=== PATIENT | male | born 1970 | race Caucasian/White ===

== ENCOUNTER 2016-10-31 16:45 | Emergency (ER) | payer OTHER ==
[2016-10-31 17:13] VITALS: BP 142/96; PULSE 116; RESP 18; TEMP 98.2
--- NOTE | 2016-10-31 17:13 | ED ---
Animal Bite HPI - General Chief Complaint: Animal Bite Stated Complaint: Dog Bite-[facility] Time Seen by Provider: 10/31/16 17:01 Source: patient, RN notes reviewed, old records reviewed Mode of arrival: ambulatory Limitations: no limitations - History of Present Illness Initial Comments: Is a 38-year-old male presenting to emergency Department with chief complaint of a dog bite while at work. 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 She he reports that her small dog came and bit him in the leg. He denies any significant bleeding. He reports he got bit in the right calf. Patient states the bleeding is stopped and he is in no pain. Patient denies any other injuries. Patient reports that this is the second time the dog has bit him the first time he did have close on so there was no puncture wound. Patient reports that he is up-to-date on his tetanus shot. Patient states that the dog is also up-to-date on his vaccinations. - Related Data Previous Rx's Medication Instructions Recorded Amoxic-Pot Clav 875-125Mg 1 tab PO Q12HR #14 tablet 10/31/16 [Augmentin 875-125] Allergies Allergy/AdvReac Type Severity Reaction Status Date / Time No Known Allergies Allergy Verified 10/31/16 17:07 Review of Systems ROS Statement: Those systems with pertinent positive or pertinent negative responses have been documented in the HPI. ROS Other: All systems not noted in ROS Statement are negative. Past Medical History History of Any Multi-Drug Resistant Organisms: None Reported Past Psychological History: No Psychological Hx Reported Smoking Status: Former smoker Past Alcohol Use History: Occasional Past Drug Use History: None Reported General Exam - General Exam Comments Initial Comments: This is a pleasant 46-year-old male. No acute distress. Limitations: no limitations General appearance: alert, in no apparent distress Head exam: Present: atraumatic, normocephalic, normal inspection Eye exam: Present: normal appearance, PERRL, EOMI. Absent: scleral icterus, conjunctival injection, periorbital swelling ENT exam: Present: normal exam, mucous membranes moist Neck exam: Present: normal inspection. Absent: tenderness, meningismus, lymphadenopathy Respiratory exam: Present: normal lung sounds bilaterally. Absent: respiratory distress, wheezes, rales, rhonchi, stridor Cardiovascular Exam: Present: regular rate, normal rhythm, normal heart sounds. Absent: systolic murmur, diastolic murmur, rubs, gallop, clicks GI/Abdominal exam: Present: soft, normal bowel sounds. Absent: distended, tenderness, guarding, rebound, rigid Extremities exam: Present: normal inspection, full ROM, normal capillary refill , other (One small laceration over the right anterior calf. Bleeding is well- controlled.). Absent: tenderness, pedal edema, joint swelling, calf tenderness Back exam: Present: normal inspection Neurological exam: Present: alert, oriented X3, CN II-XII intact Psychiatric exam: Present: normal affect, normal mood Skin exam: Present: warm, dry, intact, normal color. Absent: rash Course Vital Signs 10/31/16 17:05 Temperature 98.2 F Pulse Rate 116 H Respiratory 18 Rate Blood Pressure 142/96 O2 Sat by Pulse 97 Oximetry Medical Decision Making - Medical Decision Making This is a 38-year-old male present emergency department with chief complaint of a dog bite on his right calf. Patient is up-to-date on his tetanus shot. Diabetes he believes the up-to-date on vaccinations. Patient will be started on Augmentin. Patient bleeding is well controlled. No significant laceration at this time. Wound was cleaned with Betadine and a nonstick dressing was adhered. Patient is advised to monitor for any signs of infection including redness swelling and drainage. Patient states she plan will comply. Return parameters were discussed. Disposition Clinical Impression: Dog bite Disposition: HOME SELF-CARE Condition: Good Instructions: Animal Bite (ED) Additional Instructions: Patient advised to keep the area clean. Monitor for any signs of infection including redness swelling or drainage. Complete entire antibiotic prescription. Keep the wound covered for the next 24 hours. Prescriptions: Amoxic-Pot Clav 875-125Mg [Augmentin 875-125] 1 tab PO Q12HR #14 tablet Referrals: None,Stated [Primary Care Provider] - 1-2 days Aline Longoria MD [STAFF PHYSICIAN] - 1-2 days Time of Disposition: 17:11
== END 2016-10-31 17:30 | disposition home or self-care (01) ==
LOC: EC 16:45
DX: S81.811A Laceration without foreign body, right lower leg, initial encounter (principal); Z87.891 Personal history of nicotine dependence; W54.0XXA Bitten by dog, initial encounter; Y93.89 Activity, other specified; Y99.0 Civilian activity done for income or pay; Y92.69 Other specified industrial and construction area as the place of occurrence of the external cause
CPT/HCPCS: 99283

== ENCOUNTER → 2017-08-01 | Outpatient (CLI) | payer OTHER ==
[2017-08-01 14:28] LABS: Basophils # (A) 0.1 k/uL (0-0.2); Basophils % (A) 1 %; Eosinophils # (A) 0.2 k/uL (0-0.7); Eosinophils % (A) 1 %; HCT 46.5 % (39.0-53.0); HGB 15.5 gm/dL (13.0-17.5); Lymphocytes # (A) 1.9 k/uL (1.0-4.8); Lymphocytes % (A) 17 %; MCH 28.9 pg (25.0-35.0); MCHC 33.2 g/dL (31.0-37.0); MCV 86.9 fL (80.0-100.0); Mean Platelet Volume 7.7; Monocytes # (A) 0.7 k/uL (0-1.0); Monocytes % (A) 6 %; Neutrophils # (A) 8.2 k/uL (1.3-7.7); Neutrophils % (A) 73 %; Platelet Count 223 k/uL (150-450); RBC 5.36 m/uL (4.30-5.90); RDW 12.7 % (11.5-15.5); WBC 11.2 k/uL (3.8-10.6)
[2017-08-01 14:39] LABS: Amylase 39 U/L (30-110); Lipase 161 U/L (23-300)
== END | disposition home or self-care (01) ==
LOC: LABWHC1 13:58
PROVIDERS: ATTEND Internal Medicine
DX: R10.11 Right upper quadrant pain (principal)
CPT/HCPCS: 36415; 82150; 83690; 85025

== ENCOUNTER 2017-08-02 11:32 | Inpatient (IN) | payer OTHER ==
[2017-08-02] MEDS ORDERED: SODIUM CHLORIDE 0.9% 1,000 ML IV STA (13:22)
[2017-08-02 13:39] LABS: Basophils # (A) 0.1 k/uL (0-0.2); Basophils % (A) 1 %; Eosinophils # (A) 0.1 k/uL (0-0.7); Eosinophils % (A) 1 %; HCT 45.8 % (39.0-53.0); HGB 15.2 gm/dL (13.0-17.5); Lymphocytes # (A) 1.7 k/uL (1.0-4.8); Lymphocytes % (A) 20 %; MCHC 33.3 g/dL (31.0-37.0); MCV 87.2 fL (80.0-100.0); Mean Platelet Volume 7.6; Monocytes # (A) 0.6 k/uL (0-1.0); Monocytes % (A) 6 %; Neutrophils # (A) 6.2 k/uL (1.3-7.7); Neutrophils % (A) 70 %; Platelet Count 214 k/uL (150-450); RBC 5.25 m/uL (4.30-5.90); RDW 12.6 % (11.5-15.5); WBC 8.8 k/uL (3.8-10.6)
[2017-08-02 13:48] LABS: Appearance,Urine Clear (Clear); Bilirubin,Urine Negative (Negative); Blood,Urine Negative (Negative); Color,Urine Yellow; Glucose,Urine (UA) 4+ (Negative); Ketones,Urine Negative (Negative); Leukocyte Esterase,Urine Negative (Negative); Nitrite,Urine Negative (Negative); PH, Urine 5.5 (5.0-8.0); Protein,Urine Negative (Negative); Specific Gravity,Urine 1.024 (1.001-1.035); Urobilinogen,Urine <2.0 mg/dL (<2.0)
--- NOTE | 2017-08-02 13:57 | ED ---
General Adult HPI - General Chief complaint: Abdominal Pain Stated complaint: Dx bad gallbladder, sent by doctor Time Seen by Provider: 08/02/17 13:04 Source: patient, RN notes reviewed Mode of arrival: ambulatory Limitations: no limitations - History of Present Illness Initial comments: Patient is a 47-year-old male who presents emergency room today with a chief complaint of having abnormal ultrasound earlier this morning. He does admit that he was called and told come here to the emergency room. He states he's been experiencing some pain in the right side of the abdomen over the last week. States the pain seems to come and go. Patient does admit that he follow- up the family doctor ordered an ultrasound that he had obtained this morning. Patient states he is relatively comfortable at this time does not morning for pain. Does admit that he's been feeling nauseated at times. Patient denies any recent fever, chills, shortness of breath, chest pain, back pain, numbness or tingling, dysuria or hematuria, constipation or diarrhea, headaches or visual changes, or any other complaints. - Related Data Home Medications Medication Instructions Recorded Confirmed Amoxicillin/Potassium Clav 1 tab PO Q12HR 08/02/17 08/02/17 [Augmentin 875-125 Tablet] Unknown Diabetic Med 1 tab PO DAILY 08/02/17 08/02/17 Allergies Allergy/AdvReac Type Severity Reaction Status Date / Time No Known Allergies Allergy Verified 08/02/17 13:12 Review of Systems ROS Statement: Those systems with pertinent positive or pertinent negative responses have been documented in the HPI. ROS Other: All systems not noted in ROS Statement are negative. Past Medical History Past Medical History: Diabetes Mellitus, Hyperlipidemia History of Any Multi-Drug Resistant Organisms: None Reported Past Surgical History: Bowel Resection Past Psychological History: No Psychological Hx Reported Smoking Status: Former smoker Past Alcohol Use History: Occasional Past Drug Use History: None Reported General Exam - General Exam Comments Initial Comments: General: The patient is awake and alert, in no distress, and does not appear acutely ill. Eye: Pupils are equal, round and reactive to light, extra-ocular movements are intact. No nystagmus. There is normal conjunctiva bilaterally. No signs of icterus. Ears, nose, mouth and throat: There are moist mucous membranes and no oral lesions. Neck: The neck is supple, there is no tenderness or JVD. Cardiovascular: There is a regular rate and rhythm. No murmur, rub or gallop is appreciated. Respiratory: Lungs are clear to auscultation, respirations are non-labored, breath sounds are equal. No wheezes, stridor, rales, or rhonchi. Gastrointestinal: Normal appearance abdomen. Normal bowel sounds. Abdomen soft on palpation patient does have tenderness right upper quadrant. No rebound tenderness. No guarding. No CVA tenderness. Musculoskeletal: Normal ROM, no tenderness. Strength 5/5. Sensation intact. Pulses equal bilaterally 2+. Neurological: A&O x 3. CN II-XII intact, There are no obvious motor or sensory deficits. Coordination appears grossly intact. Speech is normal. Skin: Skin is warm and dry and no rashes or lesions are noted. Psychiatric: Cooperative, appropriate mood & affect, normal judgment. Limitations: no limitations Course Vital Signs 08/02/17 11:37 Temperature 97.0 F L Pulse Rate 98 Respiratory 18 Rate Blood Pressure 179/96 O2 Sat by Pulse 99 Oximetry Medical Decision Making - Medical Decision Making Patient's labs been reviewed. Patient's ultrasound from earlier today was reviewed showing evidence for a acute cholecystitis. Results were discussed with the patient. Case discussed with attending physician Dr. Barry who has spoken with surgeon bail bonding agent Dr. Winchester with the patient. - Lab Data Result diagrams: 08/02/17 13:03 08/02/17 13:03 Lab Results 08/02/17 08/02/17 08/02/17 Range/Units 13:03 13:03 13:36 WBC 8.8 (3.8-10.6) k/uL RBC 5.25 (4.30-5.90) m/uL Hgb 15.2 (13.0-17.5) gm/dL Hct 45.8 (39.0-53.0) % MCV 87.2 (80.0-100.0) fL MCH 29.0 (25.0-35.0) pg MCHC 33.3 (31.0-37.0) g/dL RDW 12.6 (11.5-15.5) % Plt Count 214 (150-450) k/uL Neutrophils % 70 % Lymphocytes % 20 % Monocytes % 6 % Eosinophils % 1 % Basophils % 1 % Neutrophils # 6.2 (1.3-7.7) k/uL Lymphocytes # 1.7 (1.0-4.8) k/uL Monocytes # 0.6 (0-1.0) k/uL Eosinophils # 0.1 (0-0.7) k/uL Basophils # 0.1 (0-0.2) k/uL Sodium 139 (137-145) mmol/L Potassium 4.3 (3.5-5.1) mmol/L Chloride 100 (98-107) mmol/L Carbon Dioxide 26 (22-30) mmol/L Anion Gap 13 mmol/L BUN 16 (9-20) mg/dL Creatinine 0.75 (0.66-1.25) mg/dL Est GFR (MDRD) Af Amer >60 (>60 ml/min/1.73 sqM) Est GFR (MDRD) Non-Af >60 (>60 ml/min/1.73 sqM) Glucose 296 H (74-99) mg/dL Plasma Lactic Acid Tony 1.3 (0.7-2.0) mmol/L Calcium 10.0 (8.4-10.2) mg/dL Total Bilirubin 0.5 (0.2-1.3) mg/dL AST 23 (17-59) U/L ALT 30 (21-72) U/L Alkaline Phosphatase 109 (38-126) U/L Total Protein 7.0 (6.3-8.2) g/dL Albumin 3.8 (3.5-5.0) g/dL Amylase 44 (30-110) U/L Lipase 264 (23-300) U/L Urine Color Urine Appearance (Clear) Urine pH (5.0-8.0) Ur Specific [place] (1.001-1.035) Urine Protein (Negative) Urine Glucose (UA) (Negative) Urine Ketones (Negative) Urine Blood (Negative) Urine Nitrite (Negative) Urine Bilirubin (Negative) Urine Urobilinogen (<2.0) mg/dL Ur Leukocyte Esterase (Negative) 08/02/17 Range/Units 13:40 WBC (3.8-10.6) k/uL RBC (4.30-5.90) m/uL Hgb (13.0-17.5) gm/dL Hct (39.0-53.0) % MCV (80.0-100.0) fL MCH (25.0-35.0) pg MCHC (31.0-37.0) g/dL RDW (11.5-15.5) % Plt Count (150-450) k/uL Neutrophils % % Lymphocytes % % Monocytes % % Eosinophils % % Basophils % % Neutrophils # (1.3-7.7) k/uL Lymphocytes # (1.0-4.8) k/uL Monocytes # (0-1.0) k/uL Eosinophils # (0-0.7) k/uL Basophils # (0-0.2) k/uL Sodium (137-145) mmol/L Potassium (3.5-5.1) mmol/L Chloride (98-107) mmol/L Carbon Dioxide (22-30) mmol/L Anion Gap mmol/L BUN (9-20) mg/dL Creatinine (0.66-1.25) mg/dL Est GFR (MDRD) Af Amer (>60 ml/min/1.73 sqM) Est GFR (MDRD) Non-Af (>60 ml/min/1.73 sqM) Glucose (74-99) mg/dL Plasma Lactic Acid Tony (0.7-2.0) mmol/L Calcium (8.4-10.2) mg/dL Total Bilirubin (0.2-1.3) mg/dL AST (17-59) U/L ALT (21-72) U/L Alkaline Phosphatase (38-126) U/L Total Protein (6.3-8.2) g/dL Albumin (3.5-5.0) g/dL Amylase (30-110) U/L Lipase (23-300) U/L Urine Color Yellow Urine Appearance Clear (Clear) Urine pH 5.5 (5.0-8.0) Ur Specific [place] 1.024 (1.001-1.035) Urine Protein Negative (Negative) Urine Glucose (UA) 4+ H (Negative) Urine Ketones Negative (Negative) Urine Blood Negative (Negative) Urine Nitrite Negative (Negative) Urine Bilirubin Negative (Negative) Urine Urobilinogen <2.0 (<2.0) mg/dL Ur Leukocyte Esterase Negative (Negative) Disposition Clinical Impression: Acute cholecystitis Disposition: ADMITTED IP TO THIS [facility] Condition: Good Referrals: Lane Flores MD [Primary Care Provider] - 1-2 days Time of Disposition: 14:23
[2017-08-02 14:01] LABS: ALT 30 U/L (21-72); AST 23 U/L (17-59); Albumin 3.8 g/dL (3.5-5.0); Alkaline Phosphatase 109 U/L (38-126); Amylase 44 U/L (30-110); Anion Gap 13 mmol/L; Blood Urea Nitrogen 16 mg/dL (9-20); Carbon Dioxide 26 mmol/L (22-30); Chloride 100 mmol/L (98-107); Glucose 296 mg/dL (74-99); Lipase 264 U/L (23-300); Potassium 4.3 mmol/L (3.5-5.1); Sodium 139 mmol/L (137-145); Total Bilirubin 0.5 mg/dL (0.2-1.3)
[2017-08-02] MEDS ORDERED: SODIUM CHLORIDE 0.9% 1,000 ML IV ONE (14:29)
[2017-08-02] MEDS ORDERED: HYDROmorphone 0.5 MG/0.5 ML SYRINGE IVP PRN (14:29)
[2017-08-02] MEDS ORDERED: ONDANSETRON 4 MG/2 ML VIAL IVP PRN (14:29)
[2017-08-02] MEDS ORDERED: NALOXONE 0.4 MG/ML 1 ML VIAL IV PRN (14:29)
[2017-08-02] MEDS ORDERED: LORazepam 2 MG/ML INJ IV PRN (14:29)
[2017-08-02] MEDS ORDERED: PIPERACILLIN-TAZOBACTAM 3.375 GM in DEXTROSE/WATER 1 50ML.BAG IVPB STA (14:32)
[2017-08-02 17:23] VITALS: BMI 31.9
[2017-08-02 18:00] LABS: Glucose,Whole Blood 164 mg/dL (75-99)
[2017-08-02] MEDS: INSULIN ASPART 100 UNIT/ML 1 ML 10 ML VIAL SQ SCH ×2 (18:10→21:59)
--- NOTE | 2017-08-02 18:31 | P.PN ---
Progress Note - Text Progress Note Date: 08/02/17 Patient seen and evaluated. Ultrasound revealed consistent with acute cholecystitis. Patient reports being on antibiotics for at least 1 week for suspected urinary tract infection or kidney infection. He has recently been diagnosed with diabetes this week as well. Surgical intervention described. Continue IV antibiotics in the interim.
[2017-08-02 20:52] LABS: Glucose,Whole Blood 119 mg/dL (75-99)
[2017-08-02 23:35] LABS: Hemoglobin A1C 9.5 % (4.0-6.0)
[2017-08-03] MEDS: AMPICILLIN-SULBACTAM 3 GM in SODIUM CHLORIDE 0.9% 100 ML IVPB SCH ×5 (00:08→23:49)
[2017-08-03 07:13] LABS: Basophils # (A) 0.1 k/uL (0-0.2); Basophils % (A) 1 %; Eosinophils # (A) 0.2 k/uL (0-0.7); Eosinophils % (A) 2 %; HCT 40.9 % (39.0-53.0); HGB 13.3 gm/dL (13.0-17.5); Lymphocytes # (A) 1.5 k/uL (1.0-4.8); Lymphocytes % (A) 20 %; MCH 28.6 pg (25.0-35.0); MCHC 32.5 g/dL (31.0-37.0); MCV 87.8 fL (80.0-100.0); Mean Platelet Volume 7.2; Monocytes # (A) 0.5 k/uL (0-1.0); Monocytes % (A) 6 %; Neutrophils # (A) 5.2 k/uL (1.3-7.7); Neutrophils % (A) 68 %; Platelet Count 176 k/uL (150-450); RBC 4.65 m/uL (4.30-5.90); RDW 12.6 % (11.5-15.5); WBC 7.6 k/uL (3.8-10.6)
[2017-08-03 07:29] LABS: ALT 29 U/L (21-72); AST 22 U/L (17-59); Albumin 3.1 g/dL (3.5-5.0); Alkaline Phosphatase 87 U/L (38-126); Anion Gap 10 mmol/L; Blood Urea Nitrogen 14 mg/dL (9-20); Calcium 8.9 mg/dL (8.4-10.2); Carbon Dioxide 25 mmol/L (22-30); Chloride 105 mmol/L (98-107); Glucose 148 mg/dL (74-99); Potassium 4.6 mmol/L (3.5-5.1); Sodium 140 mmol/L (137-145); Total Bilirubin 0.8 mg/dL (0.2-1.3)
[2017-08-03 07:47] LABS: Glucose,Whole Blood 144 mg/dL (75-99)
[2017-08-03] MEDS: INSULIN ASPART 100 UNIT/ML 1 ML 10 ML VIAL SQ SCH ×5 (09:12→22:37)
[2017-08-03 11:17] LABS: Glucose,Whole Blood 141 mg/dL (75-99)
--- NOTE | 2017-08-03 12:54 | P.PN ---
Subjective Progress Note Date: 08/03/17 The patient is a 47-year-old gentleman who comes in his newly diagnosed diabetic including acute cholecystitis. Since admission, his right upper quadrant abdominal pain has improved. He is responding well to antibiotics. Otherwise no new complaints. Objective - Vital Signs Vital signs: Vital Signs Temp 97.9 F 08/03/17 09:07 Pulse 82 08/03/17 09:07 Resp 20 08/03/17 09:07 BP 148/89 08/03/17 09:07 Pulse Ox 96 08/03/17 09:07 Intake & Output 08/02/17 08/03/17 08/03/17 18:59 06:59 18:59 Intake Total 120 1010 Balance 120 1010 Weight 100.97 kg Intake: Intake, IV Titration 50 Amount Piperacillin-Tazobactam 3 50 .375 gm In Dextrose/Water 1 50ml.bag @ 12.5 mls/hr IVPB ONCE STA Rx#: [id number] Oral 120 960 Other: Voiding Method Toilet # Voids 1 1 - Exam GENERAL: Well developed and in no acute distress. Pleasant. HEENT: No sclera icterus. Extraocular movements grossly intact. Moist buccal mucosa. Head is atraumatic, normocephalic. Hears conversational speech. No nasal drainage. NECK: Supple without lymphadenopathy. No JV distention. CHEST: Non-labored respirations and equal bilateral excursions. CARDIOVASCULAR: Regular rate and rhythm. Palpable 2+ radial pulses. ABDOMEN: Soft, minimal tenderness along the right upper quadrant. No peritonitis. MUSCULOSKELETAL: No clubbing, cyanosis or edema. NEUROLOGIC: No focal or lateralizing signs. PSYCH: Appropriate affect. Alert and oriented to person, place and time. SKIN: Good skin turgor. Well perfused. - Labs CBC & Chem 7: 08/03/17 06:38 08/03/17 06:38 Labs: Abnormal Lab Results - Last 24 Hours (Table) 08/02/17 08/02/17 08/02/17 Range/Units 13:03 13:03 13:40 Glucose 296 H (74-99) mg/dL POC Glucose (mg/dL) (75-99) mg/dL Hemoglobin A1c 9.5 H (4.0-6.0) % Total Protein (6.3-8.2) g/dL Albumin (3.5-5.0) g/dL Urine Glucose (UA) 4+ H (Negative) 08/02/17 08/02/17 08/03/17 Range/Units 17:07 20:50 06:38 Glucose 148 H (74-99) mg/dL POC Glucose (mg/dL) 164 H 119 H (75-99) mg/dL Hemoglobin A1c (4.0-6.0) % Total Protein 6.0 L (6.3-8.2) g/dL Albumin 3.1 L (3.5-5.0) g/dL Urine Glucose (UA) (Negative) 08/03/17 08/03/17 Range/Units 06:50 11:10 Glucose (74-99) mg/dL POC Glucose (mg/dL) 144 H 141 H (75-99) mg/dL Hemoglobin A1c (4.0-6.0) % Total Protein (6.3-8.2) g/dL Albumin (3.5-5.0) g/dL Urine Glucose (UA) (Negative) Assessment and Plan (1) Diabetes type 2, controlled Current Visit: Yes Status: Acute Code(s): E11.9 - TYPE 2 DIABETES MELLITUS WITHOUT COMPLICATIONS SNOMED Code(s): 25983011 (2) Acute cholecystitis Current Visit: Yes Status: Acute Code(s): K81.0 - ACUTE CHOLECYSTITIS SNOMED Code(s): 90318394 Plan: 1. Given his presentation of acute cholecystitis including thickened gallbladder wall, technique of surgery including robotic approach was reviewed to increase safety of his operation which he demonstrated understanding. 2. In the interim, we'll continue with antibiotics which should help to decrease moderate inflammation along the gallbladder. 3. Low-fat including carbohydrate consistent diet in the interim. 4. DVT prophylaxis.
[2017-08-03] MEDS: HEPARIN SODIUM,PORCINE 5,000 UNIT/ML 1 ML VIAL SQ SCH ×2 (16:06→23:49)
[2017-08-03 16:57] LABS: Glucose,Whole Blood 169 mg/dL (75-99)
[2017-08-03 21:37] LABS: Glucose,Whole Blood 136 mg/dL (75-99)
[2017-08-04] MEDS: AMPICILLIN-SULBACTAM 3 GM in SODIUM CHLORIDE 0.9% 100 ML IVPB SCH ×3 (05:32→12:35)
--- NOTE | 2017-08-04 07:57 | P.GSHP ---
History of Present Illness H&P Date: 08/02/17 CHIEF COMPLAINT: Cholecystitis HISTORY OF PRESENT ILLNESS: The patient is a 47-year-old male who presents with history of epigastric including right upper quadrant abdominal pain. Ultrasound was consistent with acute cholecystitis. Patient reports being on antibiotics for at least 1 week for suspected urinary tract infection or kidney infection. He has recently been diagnosed with diabetes this week as well. She is unaware of any family history of gallbladder disease. PAST MEDICAL HISTORY: Please see list PAST SURGICAL HISTORY: Please see list MEDICATIONS: Please see list ALLERGIES: Denies. SOCIAL HISTORY: No illicit drug use or recent tobacco use FAMILY HISTORY: Unaware of gallbladder disease REVIEW OF ORGAN SYSTEMS: CONSTITUTIONAL: No reports of fevers or chills. HEENT: Denies any troubles with the vision or hearing. Wears glasses. ENDOCRINE: No reports of hypothyroidism. New diagnosis of diabetes within 1 week. RESPIRATORY: No recent pneumonias. No asthma. CARDIOVASCULAR: Denies chest pain or palpitations GI: No blood in stools or constipation. MUSCULOSKELETAL: Has occasional joint pain including back pain. NEURO: No seizure disorders or headaches. No recent stroke. PSYCH: No depression or suicidal ideation. HEMATOLOGIC: No personal or family history of DVTs or pulmonary emboli. PHYSICAL EXAM: VITAL SIGNS: Afebrile vital signs stable GENERAL: Well-developed pleasant male in no acute distress. HEENT: No scleral icterus. Extraocular movements grossly intact. Moist buccal mucosa. NECK: Supple without lymphadenopathy. CHEST: Unlabored respirations. Equal bilateral excursions. CARDIOVASCULAR: Regular rate regular rhythm rhythm. Distal 2+ pulses. ABDOMEN: Soft, nondistended. Mild tenderness along the right upper quadrant. No peritonitis. MUSCULOSKELETAL: No clubbing, cyanosis, or edema. NEURO :Moves all extremities 5/5. Cranial nerves II-12 grossly intact. PSYCH: Alert and oriented to person, place and time. SKIN: Well perfused. Good skin turgor. ASSESSMENT: 1. Right upper quadrant abdominal pain 2. Acute cholecystitis PLAN: 1. Will need a robotic laparoscopic cholecystectomy possible open. Benefits and risks were described. 2. Heparin for DVT prophylaxis 5000 units. 3. Antibiotic prophylaxis. Past Medical History Past Medical History: Diabetes Mellitus, Hyperlipidemia History of Any Multi-Drug Resistant Organisms: None Reported Past Surgical History: Bowel Resection Smoking Status: Former smoker Medications and Allergies Home Medications Medication Instructions Recorded Confirmed Type Amoxicillin/Potassium Clav 1 tab PO Q12HR 08/02/17 08/02/17 History [Augmentin 875-125 Tablet] Unknown Diabetic Med 1 tab PO DAILY 08/02/17 08/02/17 History Allergies Allergy/AdvReac Type Severity Reaction Status Date / Time No Known Allergies Allergy Verified 08/02/17 17:30 Surgical - Exam Vital Signs Temp Pulse Resp BP Pulse Ox 97.0 F L 98 18 179/96 99 08/02/17 11:37 08/02/17 11:37 08/02/17 11:37 08/02/17 11:37 08/02/17 11:37 Results - Labs 08/03/17 06:38 08/03/17 06:38 Abnormal Lab Results - Last 24 Hours (Table) 08/02/17 08/02/17 08/02/17 Range/Units 13:03 13:40 17:07 Glucose 296 H (74-99) mg/dL POC Glucose (mg/dL) 164 H (75-99) mg/dL Urine Glucose (UA) 4+ H (Negative) Diabetes panel 08/02/17 Range/Units 13:03 Sodium 139 (137-145) mmol/L Potassium 4.3 (3.5-5.1) mmol/L Chloride 100 (98-107) mmol/L Carbon Dioxide 26 (22-30) mmol/L BUN 16 (9-20) mg/dL Creatinine 0.75 (0.66-1.25) mg/dL Glucose 296 H (74-99) mg/dL Calcium 10.0 (8.4-10.2) mg/dL AST 23 (17-59) U/L ALT 30 (21-72) U/L Alkaline Phosphatase 109 (38-126) U/L Total Protein 7.0 (6.3-8.2) g/dL Albumin 3.8 (3.5-5.0) g/dL Calcium panel 08/02/17 Range/Units 13:03 Calcium 10.0 (8.4-10.2) mg/dL Albumin 3.8 (3.5-5.0) g/dL Pituitary panel 08/02/17 Range/Units 13:03 Sodium 139 (137-145) mmol/L Potassium 4.3 (3.5-5.1) mmol/L Chloride 100 (98-107) mmol/L Carbon Dioxide 26 (22-30) mmol/L BUN 16 (9-20) mg/dL Creatinine 0.75 (0.66-1.25) mg/dL Glucose 296 H (74-99) mg/dL Calcium 10.0 (8.4-10.2) mg/dL Adrenal panel 08/02/17 Range/Units 13:03 Sodium 139 (137-145) mmol/L Potassium 4.3 (3.5-5.1) mmol/L Chloride 100 (98-107) mmol/L Carbon Dioxide 26 (22-30) mmol/L BUN 16 (9-20) mg/dL Creatinine 0.75 (0.66-1.25) mg/dL Glucose 296 H (74-99) mg/dL Calcium 10.0 (8.4-10.2) mg/dL Total Bilirubin 0.5 (0.2-1.3) mg/dL AST 23 (17-59) U/L ALT 30 (21-72) U/L Alkaline Phosphatase 109 (38-126) U/L Total Protein 7.0 (6.3-8.2) g/dL Albumin 3.8 (3.5-5.0) g/dL - Imaging US - abdomen: report reviewed, image reviewed (Thickening gallbladder wall over 5 mm.) Assessment and Plan (1) Obesity (BMI 30.0-34.9) Current Visit: Yes Status: Acute Code(s): E66.9 - OBESITY, UNSPECIFIED SNOMED Code(s): 335343694 (2) Acute cholecystitis Current Visit: Yes Status: Acute Code(s): K81.0 - ACUTE CHOLECYSTITIS SNOMED Code(s): 98733682 (3) Diabetes type 2, controlled Current Visit: Yes Status: Acute Code(s): E11.9 - TYPE 2 DIABETES MELLITUS WITHOUT COMPLICATIONS SNOMED Code(s): 61906867 Plan: 1. Recommend full inpatient admission for acute cholecystitis. 2. IV antibiotics. 3. DVT prophylaxis. 4. GI prophylaxis. 5. Will need cholecystectomy.
[2017-08-04] MEDS: INSULIN ASPART 100 UNIT/ML 1 ML 10 ML VIAL SQ SCH ×4 (08:07→21:49)
[2017-08-04] MEDS: HEPARIN SODIUM,PORCINE 5,000 UNIT/ML 1 ML VIAL SQ SCH ×2 (08:18→17:02)
[2017-08-04 11:08] LABS: Glucose,Whole Blood 140 mg/dL (75-99)
[2017-08-04] MEDS ORDERED: LACTATED RINGERS 1,000 ML IV ONE ×4 (11:56→18:10)
[2017-08-04] MEDS ORDERED: INDOCYANINE GREEN 25 MG VIAL IV STA (12:04)
[2017-08-04] MEDS ORDERED: LIDOCAINE 1% 20 ML VIAL (10MG/ML) FOR IV START INTRADERMA ONE (12:11)
[2017-08-04] MEDS ORDERED: LABETALOL 5 MG/ML VIAL MDV ONE (12:35)
[2017-08-04] MEDS ORDERED: INDOCYANINE GREEN 25 MG VIAL IV ONE (12:35)
[2017-08-04] MEDS ORDERED: ROCURONIUM BROMIDE 10 MG/ML 10 ML VIAL IV ONE (12:35)
[2017-08-04] MEDS ORDERED: LIDOCAINE 1% INJ 10MG/ML (20 ML MDV) ONE (12:35)
[2017-08-04] MEDS ORDERED: PROPOFOL 10 MG/ML 20 ML VIAL IV ONE (12:35)
[2017-08-04] MEDS ORDERED: SUCCINYLCHOLINE CHLORIDE 100 MG/5 ML SYR IV ONE (12:35)
[2017-08-04] MEDS ORDERED: HYDROmorphone (PF) 1 MG/ML ONE (12:35)
[2017-08-04] MEDS ORDERED: MIDAZOLAM 2 MG/2 ML VIAL ONE (12:35)
[2017-08-04] MEDS ORDERED: fentaNYL (PF) 50 MCG/ML 2 ML AMP ONE (12:35)
[2017-08-04] MEDS ORDERED: BUPIVACAINE (PF) 0.25% 30 ML VIAL SQ ONE ×2 (12:35→13:02)
[2017-08-04 17:24] LABS: Glucose,Whole Blood 229 mg/dL (75-99)
[2017-08-04] MEDS ORDERED: INSULIN ASPART 100 UNIT/ML 1 ML 10 ML VIAL SQ ONE (17:24)
--- NOTE | 2017-08-04 17:27 | P.PCN ---
Date of Procedure: 08/04/17 Preoperative Diagnosis: Acute cholecystitis Postoperative Diagnosis: Same, gangrenous acute cholecystitis with cystic duct obstruction, severe intra- abdominal adhesions, inguinal hernias. Procedure(s) Performed: Robot-assisted laparoscopic extensive lysis of adhesions over 1-1/2 hours, robotic-assisted cholecystectomy, placement of round #19 Chet drain right upper quadrant hepatic fossa, peritoneal lavage 2 L normal saline Anesthesia: GETA, local Surgeon: Dariana Winchester Estimated Blood Loss (ml): 75 Pathology: other (Gallbladder including gallbladder fluid) Condition: stable Disposition: floor Operative Findings: 1. Multiple gallstones with severely thickened gallbladder wall over 7 mm. 2. Severe adhesions encompassing the entire gallbladder and omentum carefully dissected free 3. Severe intra-abdominal adhesions along the midline and bilateral upper abdomen secondary to previous open laparotomy and colostomy reversal. 4. Inguinal hernia. 5. Subtotal cholecystectomy a long infundibulum to avoid any injury to the cystic structure 6. FIRFELY used to identify gallbladder. 7. Abdomen irrigated with 2 L normal saline for contaminated case from perforated gallbladder along hepatic fossa from full-thickness necrosis. 8. Full-thickness necrosis of gallbladder wall along hepatic fossa with abscess identified. 9. Drain placed along hepatic fossa with moderate irrigation performed. 10. Hepatomegaly with macular-nodular liver cirrhosis. 11. Adhesionolysis over 1-1/2 hours performed.
[2017-08-04] MEDS ORDERED: ONDANSETRON 4 MG/2 ML VIAL IVP ONE (17:38)
[2017-08-04] MEDS ORDERED: HYDROmorphone 0.5 MG/0.5 ML SYRINGE IVP ONE ×2 (17:39→18:06)
[2017-08-04] MEDS: PIPERACILLIN-TAZOBACTAM 3.375 GM in DEXTROSE/WATER 1 50ML.BAG IVPB SCH (18:56)
[2017-08-04 20:44] LABS: Glucose,Whole Blood 196 mg/dL (75-99)
[2017-08-04] MEDS: HYDROmorphone 4 MG TABLET PO PRN (21:50)
[2017-08-05] MEDS: HYDROmorphone 4 MG TABLET PO PRN ×2 (02:17→17:50)
[2017-08-05] MEDS: PIPERACILLIN-TAZOBACTAM 3.375 GM in DEXTROSE/WATER 1 50ML.BAG IVPB SCH ×3 (02:18→17:52)
[2017-08-05] MEDS: HEPARIN SODIUM,PORCINE 5,000 UNIT/ML 1 ML VIAL SQ SCH ×3 (02:18→16:18)
[2017-08-05 07:24] LABS: Basophils # (A) 0.1 k/uL (0-0.2); Basophils % (A) 0 %; Eosinophils % (A) 0 %; HCT 41.6 % (39.0-53.0); HGB 14.1 gm/dL (13.0-17.5); Lymphocytes % (A) 7 %; MCH 29.4 pg (25.0-35.0); MCHC 33.9 g/dL (31.0-37.0); MCV 86.6 fL (80.0-100.0); Mean Platelet Volume 7.1; Monocytes # (A) 0.8 k/uL (0-1.0); Monocytes % (A) 5 %; Neutrophils # (A) 12.5 k/uL (1.3-7.7); Neutrophils % (A) 86 %; Platelet Count 233 k/uL (150-450); RBC 4.81 m/uL (4.30-5.90); RDW 12.5 % (11.5-15.5); WBC 14.5 k/uL (3.8-10.6)
[2017-08-05 07:25] LABS: Glucose,Whole Blood 181 mg/dL (75-99)
[2017-08-05 07:26] VITALS: RESP 16
[2017-08-05 07:58] LABS: ALT 31 U/L (21-72); AST 37 U/L (17-59); Albumin 3.2 g/dL (3.5-5.0); Alkaline Phosphatase 87 U/L (38-126); Anion Gap 11 mmol/L; Blood Urea Nitrogen 15 mg/dL (9-20); Carbon Dioxide 25 mmol/L (22-30); Chloride 100 mmol/L (98-107); Glucose 188 mg/dL (74-99); Potassium 4.3 mmol/L (3.5-5.1); Sodium 136 mmol/L (137-145); Total Bilirubin 1.2 mg/dL (0.2-1.3); Total Protein 6.2 g/dL (6.3-8.2)
[2017-08-05] MEDS: PANTOPRAZOLE 40 MG/10 ML VIAL IV SCH (08:26)
[2017-08-05] MEDS: INSULIN ASPART 100 UNIT/ML 1 ML 10 ML VIAL SQ SCH ×4 (08:27→21:09)
[2017-08-05] MEDS: HYDROcodone/APAP 5-325MG 1 EACH TAB PO PRN ×3 (08:31→16:50)
[2017-08-05 11:29] LABS: Glucose,Whole Blood 206 mg/dL (75-99)
--- NOTE | 2017-08-05 11:32 | P.PN ---
<HemaLienKate M - Last Filed: 08/05/17 11:17> Subjective Progress Note Date: 08/05/17 47-year-old male seen and examined. Sitting up in bed. States pain medication effective for pain control. States continues to have surgical discomfort but improved. Reports no nausea vomiting. No bowel movement. States his belching but not passing gas rectally. 47-year-old male presented to the emergency room with a chief complaint of of having developed right upper quadrant abdominal pain. Onset 1 week. Patient stated that he been having right-sided abdominal pain that would come and go for the past week. He reportedly gone to a family doctor to be evaluated who did order an ultrasound. Patient had the ultrasound was called and told to come to the emergency room that the ultrasound was abnormal. Ultrasound was consistent with acute cholecystitis. Patient reported that he had been on antibiotic therapy for at least a week for suspected urinary tract infection or kidney infection. Also patient had recently been diagnosed as diabetic. Robot-assisted laparoscopic extensive lysis of adhesions over 1-1/2 hours, robotic-assisted cholecystectomy, placement of round #19 Chet drain right upper quadrant hepatic fossa, peritoneal lavage 2 L normal saline done on August 05 Objective - Vital Signs Vital signs: Vital Signs Temp 98.1 F 08/05/17 07:00 Pulse 93 08/05/17 07:00 Resp 16 08/05/17 07:00 BP 132/78 08/05/17 07:00 Pulse Ox 93 L 08/05/17 07:00 Intake & Output 08/04/17 08/05/17 08/05/17 18:59 06:59 18:59 Intake Total 2550 50 Output Total 195 90 Balance 2355 -40 Weight 100.97 kg Intake: IV 2550 Intake, IV Titration 50 Amount Piperacillin-Tazobactam 3 50 .375 gm In Dextrose/Water 1 50ml.bag @ 12.5 mls/hr IVPB Q8H [facility] Rx#: [id number] Output: Drainage 90 Right Lower Abdomen 90 Estimated Blood Loss 195 Other: Voiding Method Toilet Toilet - Exam Physical exam Pleasant 47-year-old male sitting up in bed alert oriented 3 Lungs adequate air movement bilaterally sats on room air 93% Heart S1-S2 audible regular denying chest pain Abdomen surgical tenderness appropriate. Right lower quadrant ANDRE drain with serosanguineous drainage noted no bowel movement surgical incision sites dry. States no stool no nausea no vomiting urinating no difficulty to hypoactive bowel tones noted Extremities no edema noted to the lower extremities Venodyne's on bilaterally - Labs CBC & Chem 7: 08/05/17 06:54 08/05/17 06:54 Labs: Abnormal Lab Results - Last 24 Hours (Table) 08/04/17 08/04/17 08/05/17 Range/Units 17:21 20:42 06:54 WBC 14.5 H (3.8-10.6) k/uL Neutrophils # 12.5 H (1.3-7.7) k/uL Sodium (137-145) mmol/L Glucose (74-99) mg/dL POC Glucose (mg/dL) 229 H 196 H (75-99) mg/dL Total Protein (6.3-8.2) g/dL Albumin (3.5-5.0) g/dL 08/05/17 08/05/17 Range/Units 06:54 07:04 WBC (3.8-10.6) k/uL Neutrophils # (1.3-7.7) k/uL Sodium 136 L (137-145) mmol/L Glucose 188 H (74-99) mg/dL POC Glucose (mg/dL) 181 H (75-99) mg/dL Total Protein 6.2 L (6.3-8.2) g/dL Albumin 3.2 L (3.5-5.0) g/dL Microbiology - Last 24 Hours (Table) 08/04/17 16:17 Gram Stain - Preliminary Peritoneal Fluid Body Fluid Culture - Preliminary 08/04/17 16:17 Anaerobic Culture - Preliminary Peritoneal Fluid 08/02/17 13:36 Blood Culture - Preliminary Blood No Growth after 48 hours Assessment and Plan Assessment: Impression Present on admission right upper quadrant pain onset on week prior suspect due to acute cholecystitis Newly diagnosed diabetes History of a recent treatment for a UTI on Augmentin prior to omission Status post August 04 Robot-assisted laparoscopic extensive lysis of adhesions over 1-1/2 hours, robotic-assisted cholecystectomy, placement of round #19 Chet drain right upper quadrant hepatic fossa, peritoneal lavage 2 L normal saline Operative findings multiple gallstones with severely thickened gallbladder wall Mildly elevated leukocytosis likely reactive Plan Continue postop surgical care Pain control DVT and GI prophylaxis on heparin subcu and protonix IV Zosyn as ordered Increase activity as tolerated Advance diet as tolerated The above impression and plan of care have been discussed and directed by signing physician. Kate Garrido nurse practitioner acting as scribe for signing physician. <Dariana Winchester N - Last Filed: 08/05/17 19:10> Objective - Vital Signs Vital signs: Vital Signs Temp 98.2 F 08/05/17 15:01 Pulse 102 H 08/05/17 14:47 Resp 16 08/05/17 14:47 BP 155/90 08/05/17 14:47 Pulse Ox 90 L 08/05/17 14:47 Intake & Output 08/05/17 08/05/17 08/06/17 06:59 18:59 06:59 Intake Total 50 500 Output Total 90 Balance -40 500 Intake: Intake, IV Titration 50 Amount Piperacillin-Tazobactam 3 50 .375 gm In Dextrose/Water 1 50ml.bag @ 12.5 mls/hr IVPB Q8H [facility] Rx#: [id number] Oral 500 Output: Drainage 90 Right Lower Abdomen 90 Other: Voiding Method Toilet Toilet # Voids 1 - Labs CBC & Chem 7: 08/05/17 06:54 08/05/17 06:54 Labs: Abnormal Lab Results - Last 24 Hours (Table) 08/04/17 08/05/17 08/05/17 Range/Units 20:42 06:54 06:54 WBC 14.5 H (3.8-10.6) k/uL Neutrophils # 12.5 H (1.3-7.7) k/uL Sodium 136 L (137-145) mmol/L Glucose 188 H (74-99) mg/dL POC Glucose (mg/dL) 196 H (75-99) mg/dL Total Protein 6.2 L (6.3-8.2) g/dL Albumin 3.2 L (3.5-5.0) g/dL 08/05/17 08/05/17 08/05/17 Range/Units 07:04 11:23 16:55 WBC (3.8-10.6) k/uL Neutrophils # (1.3-7.7) k/uL Sodium (137-145) mmol/L Glucose (74-99) mg/dL POC Glucose (mg/dL) 181 H 206 H 197 H (75-99) mg/dL Total Protein (6.3-8.2) g/dL Albumin (3.5-5.0) g/dL Microbiology - Last 24 Hours (Table) 08/02/17 13:36 Blood Culture - Preliminary Blood No Growth after 72 hours 08/04/17 16:17 Gram Stain - Preliminary Peritoneal Fluid Body Fluid Culture - Preliminary 08/04/17 16:17 Anaerobic Culture - Preliminary Peritoneal Fluid Assessment and Plan (1) Obesity (BMI 30.0-34.9) Current Visit: Yes Status: Acute Code(s): E66.9 - OBESITY, UNSPECIFIED SNOMED Code(s): 501181637 (2) Acute cholecystitis Current Visit: Yes Status: Acute Code(s): K81.0 - ACUTE CHOLECYSTITIS SNOMED Code(s): 04979795 (3) Diabetes type 2, controlled Current Visit: Yes Status: Acute Code(s): E11.9 - TYPE 2 DIABETES MELLITUS WITHOUT COMPLICATIONS SNOMED Code(s): 06257110
[2017-08-05 16:57] LABS: Glucose,Whole Blood 197 mg/dL (75-99)
[2017-08-05 20:30] LABS: Hemoglobin A1C 9.8 % (4.0-6.0)
[2017-08-05 21:15] LABS: Glucose,Whole Blood 192 mg/dL (75-99)
[2017-08-06] MEDS: HEPARIN SODIUM,PORCINE 5,000 UNIT/ML 1 ML VIAL SQ SCH ×4 (00:21→23:19)
[2017-08-06] MEDS: HYDROmorphone 4 MG TABLET PO PRN ×2 (00:24→09:24)
[2017-08-06] MEDS: PIPERACILLIN-TAZOBACTAM 3.375 GM in DEXTROSE/WATER 1 50ML.BAG IVPB SCH ×3 (02:42→17:01)
[2017-08-06 06:58] LABS: Glucose,Whole Blood 161 mg/dL (75-99)
[2017-08-06] MEDS: PANTOPRAZOLE 40 MG/10 ML VIAL IV SCH (08:09)
[2017-08-06] MEDS: INSULIN ASPART 100 UNIT/ML 1 ML 10 ML VIAL SQ SCH ×4 (08:10→23:19)
[2017-08-06 08:13] LABS: Basophils % (A) 0 %; Eosinophils # (A) 0.1 k/uL (0-0.7); Eosinophils % (A) 1 %; HCT 43.7 % (39.0-53.0); HGB 13.9 gm/dL (13.0-17.5); Lymphocytes # (A) 1.5 k/uL (1.0-4.8); Lymphocytes % (A) 11 %; MCH 28.8 pg (25.0-35.0); MCHC 31.8 g/dL (31.0-37.0); MCV 90.7 fL (80.0-100.0); Mean Platelet Volume 7.3; Monocytes # (A) 0.8 k/uL (0-1.0); Monocytes % (A) 6 %; Neutrophils # (A) 10.8 k/uL (1.3-7.7); Neutrophils % (A) 81 %; Platelet Count 219 k/uL (150-450); RBC 4.82 m/uL (4.30-5.90); RDW 12.7 % (11.5-15.5); WBC 13.3 k/uL (3.8-10.6)
[2017-08-06 08:14] LABS: ALT 32 U/L (21-72); AST 29 U/L (17-59); Albumin 3.1 g/dL (3.5-5.0); Alkaline Phosphatase 104 U/L (38-126); Anion Gap 9 mmol/L; Blood Urea Nitrogen 14 mg/dL (9-20); Calcium 8.6 mg/dL (8.4-10.2); Carbon Dioxide 28 mmol/L (22-30); Chloride 99 mmol/L (98-107); Glucose 181 mg/dL (74-99); Sodium 136 mmol/L (137-145); Total Bilirubin 0.8 mg/dL (0.2-1.3); Total Protein 6.1 g/dL (6.3-8.2)
--- NOTE | 2017-08-06 08:41 | P.PN ---
<Kate Garrido Severino - Last Filed: 08/06/17 11:04> Subjective Progress Note Date: 08/06/17 47-year-old male seen and examined patient states he had been up ambulating in the hallway yesterday is belching but not passing gas no stool no reports of nausea vomiting. States pain medication effective for pain control noted patient urinating dark cheko urine. Note the ANDRE drain serosanguineous drainage noted. Robot-assisted laparoscopic extensive lysis of adhesions over 1-1/2 hours, robotic-assisted cholecystectomy, placement of round #19 Chet drain right upper quadrant hepatic fossa, peritoneal lavage 2 L normal saline done on August 05 Objective - Vital Signs Vital signs: Vital Signs Temp 98.1 F 08/06/17 07:00 Pulse 106 H 08/06/17 07:00 Resp 16 08/06/17 07:00 BP 105/71 08/06/17 07:00 Pulse Ox 95 08/06/17 07:00 Intake & Output 08/05/17 08/06/17 08/06/17 18:59 06:59 18:59 Intake Total 500 50 Output Total 20 Balance 500 30 Intake: Intake, IV Titration 50 Amount Lactated Ringers 1,000 ml 0 As IV .[facility] Rx#: [id number] Piperacillin-Tazobactam 3 50 .375 gm In Dextrose/Water 1 50ml.bag @ 12.5 mls/hr IVPB Q8H [facility] Rx#: [id number] Oral 500 Output: Drainage 20 Right Lower Abdomen 20 Other: Voiding Method Toilet Toilet # Voids 1 - Exam Physical exam 47-year-old male sitting up in bed appears in no acute distress Lungs diminished at the bases able to use the incentive spirometer with coaching can achieve 1000 no wheezing noted sats are 95% on room air Heart S1-S2 audible and regular denying chest pain Abdomen surgical tenderness appropriate few hypoactive bowel tones slightly distended surgical dressing to surgical site dry urinating dark cheko urine reports no nausea vomiting states belching no stool ANDRE drain serosanguineous drainage Extremities no edema noted. - Labs CBC & Chem 7: 08/06/17 07:22 08/06/17 07:22 Labs: Abnormal Lab Results - Last 24 Hours (Table) 08/05/17 08/05/17 08/05/17 Range/Units 06:54 11:23 16:55 WBC (3.8-10.6) k/uL Neutrophils # (1.3-7.7) k/uL Sodium (137-145) mmol/L Glucose (74-99) mg/dL POC Glucose (mg/dL) 206 H 197 H (75-99) mg/dL Hemoglobin A1c 9.8 H (4.0-6.0) % Total Protein (6.3-8.2) g/dL Albumin (3.5-5.0) g/dL 08/05/17 08/06/17 08/06/17 Range/Units 20:56 06:56 07:22 WBC 13.3 H (3.8-10.6) k/uL Neutrophils # 10.8 H (1.3-7.7) k/uL Sodium (137-145) mmol/L Glucose (74-99) mg/dL POC Glucose (mg/dL) 192 H 161 H (75-99) mg/dL Hemoglobin A1c (4.0-6.0) % Total Protein (6.3-8.2) g/dL Albumin (3.5-5.0) g/dL 08/06/17 Range/Units 07:22 WBC (3.8-10.6) k/uL Neutrophils # (1.3-7.7) k/uL Sodium 136 L (137-145) mmol/L Glucose 181 H (74-99) mg/dL POC Glucose (mg/dL) (75-99) mg/dL Hemoglobin A1c (4.0-6.0) % Total Protein 6.1 L (6.3-8.2) g/dL Albumin 3.1 L (3.5-5.0) g/dL Microbiology - Last 24 Hours (Table) 08/04/17 16:17 Gram Stain - Preliminary Peritoneal Fluid Body Fluid Culture - Preliminary Gram Neg Bacilli 08/02/17 13:36 Blood Culture - Preliminary Blood No Growth after 72 hours Assessment and Plan Assessment: Impression Present on admission right upper quadrant pain onset on week prior suspect due to acute cholecystitis Newly diagnosed diabetes History of a recent treatment for a UTI on Augmentin prior to omission Status post August 04 Robot-assisted laparoscopic extensive lysis of adhesions over 1-1/2 hours, robotic-assisted cholecystectomy, placement of round #19 Chet drain right upper quadrant hepatic fossa, peritoneal lavage 2 L normal saline Operative findings multiple gallstones with severely thickened gallbladder wall Mildly elevated leukocytosis likely reactive Plan Increase IV fluid 250 an hour for 1 L then down to 75 an hour Follow-up on pending labs Encourage use of the incentive spirometer Continue postop surgical care Pain control DVT and GI prophylaxis on heparin subcu and protonix IV Zosyn as ordered Increase activity as tolerated Advance diet as tolerated Consult infectious disease Dr. Monroe The above impression and plan of care have been discussed and directed by signing physician. Kate Garrido nurse practitioner acting as scribe for signing physician. <Dariana Winchester N - Last Filed: 08/06/17 18:14> Objective - Vital Signs Vital signs: Vital Signs Temp 98.6 F 08/06/17 15:00 Pulse 105 H 08/06/17 15:00 Resp 16 08/06/17 15:00 BP 118/76 08/06/17 15:00 Pulse Ox 92 L 08/06/17 15:00 Intake & Output 08/05/17 08/06/17 08/06/17 18:59 06:59 18:59 Intake Total 500 50 500 Output Total 20 100 Balance 500 30 400 Intake: Intake, IV Titration 50 Amount Lactated Ringers 1,000 ml 0 As IV [facility] Rx#: [id number] Piperacillin-Tazobactam 3 50 .375 gm In Dextrose/Water 1 50ml.bag @ 12.5 mls/hr IVPB Q8H [facility] Rx#: [id number] Oral 500 500 Output: Drainage 20 100 Right Lower Abdomen 20 100 Other: Voiding Method Toilet Toilet Toilet # Voids 1 2 - Labs CBC & Chem 7: 08/06/17 07:22 08/06/17 07:22 Labs: Abnormal Lab Results - Last 24 Hours (Table) 08/05/17 08/05/17 08/06/17 Range/Units 06:54 20:56 06:56 WBC (3.8-10.6) k/uL Neutrophils # (1.3-7.7) k/uL Sodium (137-145) mmol/L Glucose (74-99) mg/dL POC Glucose (mg/dL) 192 H 161 H (75-99) mg/dL Hemoglobin A1c 9.8 H (4.0-6.0) % Total Protein (6.3-8.2) g/dL Albumin (3.5-5.0) g/dL 08/06/17 08/06/17 08/06/17 Range/Units 07:22 07:22 12:05 WBC 13.3 H (3.8-10.6) k/uL Neutrophils # 10.8 H (1.3-7.7) k/uL Sodium 136 L (137-145) mmol/L Glucose 181 H (74-99) mg/dL POC Glucose (mg/dL) 176 H (75-99) mg/dL Hemoglobin A1c (4.0-6.0) % Total Protein 6.1 L (6.3-8.2) g/dL Albumin 3.1 L (3.5-5.0) g/dL 08/06/17 Range/Units 17:12 WBC (3.8-10.6) k/uL Neutrophils # (1.3-7.7) k/uL Sodium (137-145) mmol/L Glucose (74-99) mg/dL POC Glucose (mg/dL) 189 H (75-99) mg/dL Hemoglobin A1c (4.0-6.0) % Total Protein (6.3-8.2) g/dL Albumin (3.5-5.0) g/dL Microbiology - Last 24 Hours (Table) 08/02/17 13:36 Blood Culture - Preliminary Blood No Growth after 96 hours 08/04/17 16:17 Gram Stain - Preliminary Peritoneal Fluid Body Fluid Culture - Preliminary Gram Neg Bacilli Assessment and Plan (1) Obesity (BMI 30.0-34.9) Current Visit: Yes Status: Acute Code(s): E66.9 - OBESITY, UNSPECIFIED SNOMED Code(s): 072389310 (2) Acute cholecystitis Current Visit: Yes Status: Acute Code(s): K81.0 - ACUTE CHOLECYSTITIS SNOMED Code(s): 62807018 (3) Diabetes type 2, controlled Current Visit: Yes Status: Acute Code(s): E11.9 - TYPE 2 DIABETES MELLITUS WITHOUT COMPLICATIONS SNOMED Code(s): 60968059
[2017-08-06] MEDS: SODIUM CHLORIDE 0.9% 1,000 ML IV SCH ×5 (09:20→23:19)
--- NOTE | 2017-08-06 12:06 | P.CONS ---
History of Present Illness - Reason for Consult Consult date: 08/06/17 Antibiotic recommendations - History of Present Illness This is a 47-year-old male who gives history of abdominal pain last Friday. He was placed on Augmentin by his PCP for suspected urinary tract infection but lab work was negative for this and he had outpatient white count of 11.2 and amylase and lipase were normal. He then underwent abdominal ultrasound that showed acute cholecystitis, hepatomegaly and fatty infiltration of the liver. Patient was then called to come into [facility] emergency center on August 02. Patient was found to have leukocytosis of 14.5 , lactic acid 1.3, hemoglobin A1c of 9.5 as patient was diagnosed last Friday with diabetes. He was placed on Zosyn and patient was admitted under the care of Dr. Winchester and on August 04, patient underwent robotic- assisted laparoscopic lysis of adhesions, cholecystectomy, drain placement and peritoneal lavage for gangrenous acute cholecystitis with cystic duct obstruction with severe intra-abdominal adhesions. 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 He is currently tolerating a regular diet without nausea or vomiting. He has not passed gas or had a bowel movement but does feel bowel sounds. Blood cultures showing no growth at 72 hours and body fluid is positive for gram-negative bacilli. Patient states he did have some nausea and dry heaves initially with the pain but once he started the Augmentin this seemed to have subsided. Review of Systems All systems: negative Constitutional: Denies anorexia, Denies chills, Denies fever, Denies poor appetite, Denies sweats, Denies weight loss Eyes: denies blurred vision, denies pain Ears, nose, mouth and throat: Denies dental pain, Denies headache, Denies mouth pain, Denies sore throat Cardiovascular: Denies chest pain, Denies decreased exercise tolerance, Denies dyspnea on exertion, Denies edema, Denies leg edema, Denies lightheadedness, Denies shortness of breath, Denies syncope Respiratory: Denies cough, Denies cough with sputum, Denies dyspnea, Denies excessive sputum, Denies hemoptysis, Denies home oxygen, Denies wheezing Gastrointestinal: Reports abdominal pain, Reports nausea, Reports vomiting, Denies diarrhea Genitourinary: Denies dysuria Musculoskeletal: Denies gait dysfunction, Denies myalgias Integumentary: Denies pruritus, Denies rash Neurological: Denies numbness, Denies weakness Psychiatric: Denies anxiety, Denies depression Endocrine: Denies fatigue, Denies weight change Past Medical History Past Medical History: Diabetes Mellitus, Hyperlipidemia History of Any Multi-Drug Resistant Organisms: None Reported Past Surgical History: Bowel Resection Smoking Status: Former smoker Additional Past Alcohol Use History / Comment(s): Patient with smoking many years ago. No illicit drug use. Occasional alcohol use. He lives at home and has an 18-year-old daughter and adult son living with him. 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 He served in the [employer]. Medications and Allergies Home Medications Medication Instructions Recorded Confirmed Type Amoxicillin/Potassium Clav 1 tab PO Q12HR 08/02/17 08/02/17 History [Augmentin 875-125 Tablet] Unknown Diabetic Med 1 tab PO DAILY 08/02/17 08/02/17 History Allergies Allergy/AdvReac Type Severity Reaction Status Date / Time No Known Allergies Allergy Verified 08/02/17 17:30 Physical Exam Vitals: Vital Signs Temp Pulse Pulse Resp BP Pulse Ox 08/06/17 07:00 98.1 F 106 H 16 105/71 95 08/06/17 03:26 99.2 F 77 16 120/67 93 L 08/05/17 20:44 98.8 F 107 H 16 129/72 91 L 08/05/17 15:01 98.2 F 08/05/17 14:47 99.6 F 102 H 16 155/90 90 L Intake and Output 08/05/17 08/06/17 08/06/17 22:59 06:59 14:59 Intake Total 50 0 Output Total 20 30 Balance 50 -20 -30 Intake: Intake, IV Titration 50 0 Amount Lactated Ringers 1,000 ml 0 As IV [facility] Rx#: [id number] Piperacillin-Tazobactam 3 50 .375 gm In Dextrose/Water 1 50ml.bag @ 12.5 mls/hr IVPB Q8H [facility] Rx#: [id number] Output: Drainage 20 30 Right Lower Abdomen 20 30 Other: Voiding Method Toilet Toilet Toilet Gen: This is a 47-year-old male. He is sitting up in bed and appears to be comfortable and in no acute distress HEENT: Head is atraumatic, normocephalic. Pupils equal, round. Sclerae is anicteric. Conjunctiva pink. Mucous members of the mouth are moist. Dentition is in very poor order. NECK: Supple. No JVD. No lymphadenopathy. No thyromegaly. LUNGS: Clear to auscultation. No wheezes or rhonchi. No intercostal retractions. HEART: Regular rate and rhythm. No murmur. ABDOMEN: Soft. Bowel sounds are present. No masses. Mild generalized tenderness. Dressings in place over surgical wounds with no breakthrough drainage. Drain in place with serosanguineous return. EXTREMITIES: No pedal edema. No calf tenderness. Dorsalis pedis +2 bilaterally. NEUROLOGICAL: Patient is awake, alert and oriented x3. Cranial nerves 2 through 12 are grossly intact. Results Results: Laboratory Results WBC 13.3 k/uL (3.8-10.6) H 08/06/17 07: RBC 4.82 m/uL (4.30-5.90) 08/06/17 07:22 Hgb 13.9 gm/dL (13.0-17.5) 08/06/17 07:22 Hct 43.7 % (39.0-53.0) 08/06/17 07:22 MCV 90.7 fL (80.0-100.0) 08/06/17 07:22 MCH 28.8 pg (25.0-35.0) 08/06/17 07:22 MCHC 31.8 g/dL (31.0-37.0) 08/06/17 07:22 RDW 12.7 % (11.5-15.5) 08/06/17 07:22 Plt Count 219 k/uL (150-450) 08/06/17 07:22 Neutrophils % 81 % 08/06/17 07:22 Lymphocytes % 11 % 08/06/17 07:22 Monocytes % 6 % 08/06/17 07:22 Eosinophils % 1 % 08/06/17 07:22 Basophils % 0 % 08/06/17 07:22 Neutrophils # 10.8 k/uL (1.3-7.7) H 08/06/17 07:22 Lymphocytes # 1.5 k/uL (1.0-4.8) 08/06/17 07:22 Monocytes # 0.8 k/uL (0-1.0) 08/06/17 07:22 Eosinophils # 0.1 k/uL (0-0.7) 08/06/17 07:22 Basophils # 0.0 k/uL (0-0.2) 08/06/17 07:22 Sodium 136 mmol/L (137-145) L 08/06/17 07:22 Potassium 4.0 mmol/L (3.5-5.1) 08/06/17 07:22 Chloride 99 mmol/L (98-107) 08/06/17 07:22 Carbon Dioxide 28 mmol/L (22-30) 08/06/17 07:22 Anion Gap 9 mmol/L 08/06/17 07:22 BUN 14 mg/dL (9-20) 08/06/17 07:22 Creatinine 0.80 mg/dL (0.66-1.25) 08/06/17 07:22 Est GFR (MDRD) Af Amer >60 (>60 ml/min/1.73 sqM) 08/06/17 07:22 Est GFR (MDRD) Non-Af >60 (>60 ml/min/1.73 sqM) 08/06/17 07:22 Glucose 181 mg/dL (74-99) H 08/06/17 07:22 POC Glucose (mg/dL) 161 mg/dL (75-99) H 08/06/17 06:56 POC Glu Steam Hammer Operator ID Addison Silva 08/06/17 06:[address] Glu mg/dL 235 08/05/17 06:54 Hemoglobin A1c 9.8 % (4.0-6.0) H 08/05/17 06:54 Plasma Lactic Acid Tony 1.3 mmol/L (0.7-2.0) 08/02/17 13:36 Calcium 8.6 mg/dL (8.4-10.2) 08/06/17 07:22 Total Bilirubin 0.8 mg/dL (0.2-1.3) 08/06/17 07:22 AST 29 U/L (17-59) 08/06/17 07:22 ALT 32 U/L (21-72) 08/06/17 07:22 Alkaline Phosphatase 104 U/L (38-126) 08/06/17 07:22 Total Protein 6.1 g/dL (6.3-8.2) L 08/06/17 07:22 Albumin 3.1 g/dL (3.5-5.0) L 08/06/17 07:22 Amylase 44 U/L (30-110) 08/02/17 13:03 Lipase 264 U/L (23-300) 08/02/17 13:03 Urine Color Yellow 08/02/17 13:40 Urine Appearance Clear (Clear) 08/02/17 13:40 Urine pH 5.5 (5.0-8.0) 08/02/17 13:40 Ur Specific [place] 1.024 (1.001-1.035) 08/02/17 13:40 Urine Protein Negative (Negative) 08/02/17 13:40 Urine Glucose (UA) 4+ (Negative) H 08/02/17 13:40 Urine Ketones Negative (Negative) 08/02/17 13:40 Urine Blood Negative (Negative) 08/02/17 13:40 Urine Nitrite Negative (Negative) 08/02/17 13:40 Urine Bilirubin Negative (Negative) 08/02/17 13:40 Urine Urobilinogen <2.0 mg/dL (<2.0) 08/02/17 13:40 Ur Leukocyte Esterase Negative (Negative) 08/02/17 13:40 CBC & Chem 7: 08/06/17 07:22 08/06/17 07:22 Labs: Abnormal Lab Results - Last 24 Hours (Table) 08/05/17 08/05/17 08/05/17 Range/Units 06:54 16:55 20:56 WBC (3.8-10.6) k/uL Neutrophils # (1.3-7.7) k/uL Sodium (137-145) mmol/L Glucose (74-99) mg/dL POC Glucose (mg/dL) 197 H 192 H (75-99) mg/dL Hemoglobin A1c 9.8 H (4.0-6.0) % Total Protein (6.3-8.2) g/dL Albumin (3.5-5.0) g/dL 08/06/17 08/06/17 08/06/17 Range/Units 06:56 07:22 07:22 WBC 13.3 H (3.8-10.6) k/uL Neutrophils # 10.8 H (1.3-7.7) k/uL Sodium 136 L (137-145) mmol/L Glucose 181 H (74-99) mg/dL POC Glucose (mg/dL) 161 H (75-99) mg/dL Hemoglobin A1c (4.0-6.0) % Total Protein 6.1 L (6.3-8.2) g/dL Albumin 3.1 L (3.5-5.0) g/dL Microbiology - Last 24 Hours (Table) 08/04/17 16:17 Gram Stain - Preliminary Peritoneal Fluid Body Fluid Culture - Preliminary Gram Neg Bacilli 08/02/17 13:36 Blood Culture - Preliminary Blood No Growth after 72 hours Assessment and Plan Plan: This is a 47-year-old male patient who presented to the hospital with an acute gangrenous cholecystitis status post robotic-assisted laparoscopic cholecystectomy. Patient is currently on Zosyn which will be continued. Patient was recently diagnosed with diabetes mellitus type 2 last week and case management is working out glucometer for him. Continue supportive care. Further recommendations as patient progresses. The above dictated assessment and findings were discussed with Dr. Monroe. The impression and plan of care have been directed as dictated. Marya Ruffin nurse practitioner acting as scribe for Dr. Monroe.
[2017-08-06 12:07] LABS: Glucose,Whole Blood 176 mg/dL (75-99)
[2017-08-06] MEDS: HYDROcodone/APAP 5-325MG 1 EACH TAB PO PRN ×2 (16:59→21:55)
[2017-08-06 17:14] LABS: Glucose,Whole Blood 189 mg/dL (75-99)
[2017-08-06 20:25] LABS: Glucose,Whole Blood 174 mg/dL (75-99)
--- NOTE | 2017-08-06 22:39 | P.CON ---
Consult Note - . Consult date: 08/06/17 Assessment/Plan:: This is a 47-year-old male who gives history of abdominal pain last Friday. He was placed on Augmentin by his PCP for suspected urinary tract infection but lab work was negative for this and he had outpatient white count of 11.2 and amylase and lipase were normal. He then underwent abdominal ultrasound that showed acute cholecystitis, hepatomegaly and fatty infiltration of the liver. Patient was then called to come into [facility] emergency center on August 02. Patient was found to have leukocytosis of 14.5 , lactic acid 1.3, hemoglobin A1c of 9.5 as patient was diagnosed last Friday with diabetes. He was placed on Zosyn and patient was admitted under the care of Dr. Winchester and on August 04, patient underwent robotic- assisted laparoscopic lysis of adhesions, cholecystectomy, drain placement and peritoneal lavage for gangrenous acute cholecystitis with cystic duct obstruction with severe intra-abdominal adhesions. 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 He is currently tolerating a regular diet without nausea or vomiting. He has not passed gas or had a bowel movement but does feel bowel sounds. Blood cultures showing no growth at 72 hours and body fluid is positive for gram-negative bacilli. Patient states he did have some nausea and dry heaves initially with the pain but once he started the Augmentin this seemed to have subsided. Please see the consult note is dictated by nurse practitioner Mrs. Marya Ruffin. Pleasant 47-year-old male who is status post the significant amounts of abdominal pain without evidence of an acute gangrenous cholecystitis with the partial cholecystectomy. Intravenous antibiotic therapy with Zosyn is being utilized until we have further data so that the outpatient course can be constructed. I agree with evaluation, assessment and plan as dictated by nurse practitioner Mrs. Marya Ruffin.
[2017-08-07] MEDS: PIPERACILLIN-TAZOBACTAM 3.375 GM in DEXTROSE/WATER 1 50ML.BAG IVPB SCH ×3 (01:34→18:08)
--- NOTE | 2017-08-07 04:28 | CONS ---
CONSULTATION DATE OF SERVICE: 08/06/2017 18. REASON FOR CONSULTATION: Advice regarding management of diabetes and other medical issues requested by Dr. Winchester. HISTORY OF PRESENT ILLNESS: This 47-year-old gentleman with a past medical history of diabetes, hyperlipidemia, bowel resection, underwent robotic assisted laparoscopic extensive lysis of adhesions by Dr. Winchester for a gangrenous acute cholecystitis with cystic duct obstruction, severe intraabdominal adhesions and inguinal hernia. The patient is improved significantly. No chest pain. No palpitations. No fever. The blood sugars are 176, 189 and 174. PAST MEDICAL HISTORY: History of diabetes, hypertension, history of nicotine dependence. MEDICATIONS: Prior to admission include amoxicillin and diabetic medications. ALLERGIES: None. FAMILY HISTORY: No history of heart disease or strokes in family. SOCIAL HISTORY: History of occasional alcohol intake and smoking. REVIEW OF SYSTEMS: ENT: No diminished vision or hearing. Cardiovascular system: S1, S2. No angina or palpitations. Respirations: No cough. GI no nausea or vomiting. no dysuria. Nervous system: No numbness or weakness. Allergy/Immunology: No asthma or hayfever. Musculoskeletal as mentioned earlier. HEMATOLOGY/ONCOLOGY: No history of anemia. Endocrine: As mentioned earlier. CONSTITUTIONAL: As mentioned earlier. Dermatology: Negative. Rheumatology: Negative. Psychiatric: As mentioned earlier. PHYSICAL EXAM: Patient is alert, oriented times three, pulse 105, blood pressure 118/76, respirations 16, temperature 98.2, pulse ox 98% on room air. HEENT: Conjunctivae normal. Oral mucosa moist. Neck is no jugular venous distention. No carotid bruit. No lymph node enlargement. Cardiovascular system: S1, S2 muffled. Respiratory: Breath sounds diminished in the bases. A few rhonchi. No crackles. ABDOMEN: Soft status post surgery. No mass palpable. Legs no edema and no swelling. NERVOUS SYSTEM: Higher functions as mentioned earlier. Moves all four limbs. No focal deficits. Lymphatics: No lymph nodes palpable in the neck, axillae or groin. Skin no ulcer, rash or bleeding. LABS: WBC 13.2, hemoglobin 13.9, Accu-Cheks 176, 189, 174. ASSESSMENT: 1. Acute gangrenous cholecystitis with cystic duct obstruction and cholelithiasis, status post robotic assisted laparoscopic cholecystectomy and lysis of adhesions. 2. Diabetes type 2. 3. Hyperlipidemia. 4. History of bowel resection. 5. History of nicotine dependence. 6. FULL CODE. RECOMMENDATIONS AND DISCUSSION: In this 47-year-old gentleman who presented with multiple medical issues, at this time, I recommend to continue current medication, symptomatic treatment, management and DVT prophylaxis. Otherwise I would also recommend proton pump inhibitors, Accu-Cheks a.c. and q.h.s., resume the home medications, broad-spectrum IV antibiotics. We will follow the patient closely. The patient may be asked to follow up with Dr. Flores who is the primary care physician. Thank you Dr. Winchester for letting us participate in the care of this patient. MMODL / IJN: [id number] /
[2017-08-07] MEDS: SODIUM CHLORIDE 0.9% 1,000 ML IV SCH ×3 (06:54→18:09)
[2017-08-07 07:13] LABS: Basophils % (A) 1 %; Eosinophils # (A) 0.2 k/uL (0-0.7); Eosinophils % (A) 2 %; HCT 39.2 % (39.0-53.0); HGB 12.4 gm/dL (13.0-17.5); Lymphocytes # (A) 1.4 k/uL (1.0-4.8); Lymphocytes % (A) 15 %; MCH 28.8 pg (25.0-35.0); MCHC 31.5 g/dL (31.0-37.0); MCV 91.5 fL (80.0-100.0); Mean Platelet Volume 7.4; Monocytes # (A) 0.5 k/uL (0-1.0); Monocytes % (A) 6 %; Neutrophils # (A) 6.8 k/uL (1.3-7.7); Neutrophils % (A) 75 %; Platelet Count 218 k/uL (150-450); RBC 4.29 m/uL (4.30-5.90); RDW 12.9 % (11.5-15.5)
[2017-08-07 07:13] LABS: Glucose,Whole Blood 144 mg/dL (75-99)
[2017-08-07 07:27] LABS: ALT 33 U/L (21-72); AST 21 U/L (17-59); Albumin 2.8 g/dL (3.5-5.0); Alkaline Phosphatase 88 U/L (38-126); Anion Gap 9 mmol/L; Blood Urea Nitrogen 13 mg/dL (9-20); Calcium 8.3 mg/dL (8.4-10.2); Carbon Dioxide 24 mmol/L (22-30); Chloride 106 mmol/L (98-107); Glucose 142 mg/dL (74-99); Potassium 3.9 mmol/L (3.5-5.1); Sodium 139 mmol/L (137-145); Total Bilirubin 0.5 mg/dL (0.2-1.3); Total Protein 5.6 g/dL (6.3-8.2)
--- NOTE | 2017-08-07 07:52 | P.PN ---
Progress Note - Text Progress Note Date: 08/06/17 Patient seen and evaluated. Clinically doing much better than admission. I discussed the patient goal of care including additional consultants. I personally spoke with infectious disease specialist regarding complicated antibiotic management. Patient is a newly diagnosed diabetic hence medical management. Patient will be discharged home with ANDRE drain. ANDRE teaching discussed. He will go home tomorrow pending resolution of leukocytosis. Likely he will need antibiotics upon discharge for acute gangrenous cholecystitis.
[2017-08-07] MEDS: INSULIN ASPART 100 UNIT/ML 1 ML 10 ML VIAL SQ SCH ×3 (08:34→18:04)
[2017-08-07] MEDS: PANTOPRAZOLE 40 MG/10 ML VIAL IV SCH (09:04)
[2017-08-07] MEDS: HEPARIN SODIUM,PORCINE 5,000 UNIT/ML 1 ML VIAL SQ SCH ×2 (09:04→18:09)
[2017-08-07] MEDS: HYDROcodone/APAP 5-325MG 1 EACH TAB PO PRN ×3 (09:06→18:06)
[2017-08-07 11:04] LABS: Glucose,Whole Blood 163 mg/dL (75-99)
--- NOTE | 2017-08-07 13:41 | PN ---
PROGRESS NOTE DATE OF SERVICE: 08/07/2017 INTERIM HISTORY: This 47-year-old gentleman who was admitted with acute gangrenous cholecystitis also had laparoscopic cholecystectomy, lysis of adhesions. Patient has been closely monitored. No chest pain. No palpitations. No fever. Infectious Disease is recommending IV Zosyn at this time. No chest pain. No palpitation. EXAM: Alert, oriented x3. Pulse is 93, blood pressure 1430/79, respirations 16, temperature 98 degrees, pulse ox 94% on room air. HEENT: Conjunctivae normal. NECK: No jugular venous distention. CARDIOVASCULAR: S1, S2. RESPIRATORY: Breath sounds diminished in the bases. No rhonchi, no crackles. ABDOMEN: Soft, status post surgery. LEGS: No edema. NERVOUS SYSTEM: No focal deficits. LABS: Cultures E. coli. Other labs are WBC 9, hemoglobin 12.5. Accu-Cheks are noted. ASSESSMENT: 1. Acute gangrenous cholecystitis with cystic duct obstruction, cholelithiasis, status post robotic assisted laparoscopic cholecystectomy for lysis adhesion. E coli from the culture. 2. Diabetes mellitus type 2. 3. Hyperlipidemia. 4. History of bowel resection. 5. History of nicotine dependence. 6. FULL CODE. RECOMMENDATIONS AND DISCUSSION: I recommend to to continue current management and symptomatic treatment. Otherwise continue the antibiotics. Incentive spirometry, DVT prophylaxis. Closely monitor. Further recommendations to follow. MMODL / IJN: [id number] /
[2017-08-07 14:22] VITALS: BP 138/85; PULSE 95; TEMP 98.6
--- NOTE | 2017-08-07 14:40 | P.DS ---
<Kate Garrido - Last Filed: 08/07/17 14:25> Providers Date of admission: 08/02/17 15:56 Expected date of discharge: 08/07/17 Attending physician: Dariana Winchester Consults: 08/05/17 19:11 Consult Physician Routine Consulting Provider: Jonnathan Baltazar Consult Reason/Comments: Medical management Do you want consulting provider notified?: Yes 08/06/17 10:20 Consult Physician Urgent Consulting Provider: Gutierrez Monroe Consult Reason/Comments: abx recs Do you want consulting provider notified?: Yes Primary care physician: Sandra Carney [facility] Course: 47-year-old male who presented with a history of epigastric right upper quadrant abdominal pain. Did undergo an ultrasound of the abdomen which was consistent with acute cholecystitis. Patient reports that he had been placed on antibiotic Augmentin one week prior for treatment of what he thought was a urinary tract infection by his primary care provider additionally patient stated he was newly diagnosed with diabetes as well. Patient gives no family history of gallbladder disease. Patient was admitted to the services of the attending with infectious disease consultation requested patient was seen by Dr. Monroe. Robot-assisted laparoscopic extensive lysis of adhesions over 1-1/2 hours, robotic-assisted cholecystectomy, placement of round #19 Chet drain right upper quadrant hepatic fossa, peritoneal lavage 2 L normal saline done on August 05 Body fluid culture final from the peritoneal fluid showed E. coli blood cultures were negative. on the day of discharge patient was up ambulatory on the unit the white count was 4.2 patient was afebrile at 98.6 pain medication effective for pain control the ANDRE drain putting out serosanguineous drainage. Patient was felt to be appropriate to be discharged home Impression discharge diagnosis Present on admission right upper quadrant pain onset on week prior suspect due to acute gangrenous cholecystitis Newly diagnosed diabetes with hemoglobin A1c of 9.5 History of a recent treatment for a UTI on Augmentin prior to admission Status post August 04 Robot-assisted laparoscopic extensive lysis of adhesions over 1-1/2 hours, robotic-assisted partial subtotal cholecystectomy, placement of round #19 Chet drain right upper quadrant hepatic fossa, peritoneal lavage 2 L normal saline Operative findings multiple gallstones with severely thickened gallbladder wall Mildly elevated leukocytosis likely reactive Peritoneal fluid positive for gram-negative bacilli The above impression and plan of care have been discussed and directed by signing physician. Kate Garrido nurse practitioner acting as scribe for signing physician. Patient Condition at Discharge: Good Plan - Discharge Summary Discharge Rx Participant: Yes New Discharge Prescriptions: New Amoxicillin/Potassium Clav [Augmentin 875-125 Tablet] 1 tab PO Q12HR #28 tab HYDROcodone/APAP 5-325MG [[place] 5-325] 1 each PO Q4HR PRN #30 tab PRN Reason: Mild Pain Linagliptin [Tradjenta] 5 mg PO DAILY #30 tab Continue Amoxicillin/Potassium Clav [Augmentin 875-125 Tablet] 1 tab PO Q12HR Unknown Diabetic Med 1 tab PO DAILY No Action Linagliptin [Tradjenta] 5 mg PO DAILY Discharge Medication List Amoxicillin/Potassium Clav [Augmentin 875-125 Tablet] 1 tab PO Q12HR 08/02/17 [ History] Unknown Diabetic Med 1 tab PO DAILY 08/02/17 [History] Amoxicillin/Potassium Clav [Augmentin 875-125 Tablet] 1 tab PO Q12HR #28 tab [Rx] HYDROcodone/APAP 5-325MG [[place] 5-325] 1 each PO Q4HR PRN #30 tab 08/07/17 [Rx] Linagliptin [Tradjenta] 5 mg PO DAILY 08/07/17 [History] Linagliptin [Tradjenta] 5 mg PO DAILY #30 tab 08/07/17 [Rx] Follow up Appointment(s)/Referral(s): Lane Flores MD [Primary Care Provider] - 08/14/17 9:40 am Gutierrez Monroe MD [STAFF PHYSICIAN] - 08/14/17 3:15 pm Dariana Winchester MD [STAFF PHYSICIAN] - 08/26/17 9:15 am (at [address] [place] [address] Address) Patient Instructions/Handouts: Nico-Diehl Drain Care (DC), Laparoscopic Cholecystectomy (DC) Activity/Diet/Wound Care/Special Instructions: No bath tub soaks. Check drainage from ANDRE and document output. Please call surgeon office when output in day is less than 30 mL to be removed. May take [id number] Colace if needed for constipation No tub bath for six weeks.. No lifting over 4 pounds for the next 6 weeks. Monitor ANDRE drain and record. May use ice packs to surgical site. No driving while taking narcotic for pain. Has DM medicine at home, RN calling PCP office GLucometer and DM supplies accuchecks before meals and at bedtime, record blood sugars and take to follow up visit to Dr. Flores. Diabetic Ed classes OP Discharge Disposition: HOME SELF-CARE <Dariana Winchester - Last Filed: 08/07/17 19:44> - Discharge Diagnosis(es) (1) Obesity (BMI 30.0-34.9) Status: Acute (2) Acute cholecystitis Status: Acute (3) Diabetes type 2, controlled Status: Acute
[2017-08-07 17:04] LABS: Glucose,Whole Blood 156 mg/dL (75-99)
--- NOTE | 2017-08-14 23:04 | P.OP ---
Date of Procedure: 08/04/17 Description of Procedure: Date of Procedure: 08/04/17 SURGEON: MITA BRANCH MD P D DRIVER: 1. Roxi Dan 2. Jessenia Klye 3. Gutierrez Sumner PREOPERATIVE DIAGNOSES: 1. Acute cholecystitis due to gallstones. 2. Diabetes type 2, [id number]. 3. Obesity due to excess calories. 4. BMI 31.9. 5. Right upper quadrant abdominal pain. POSTOPERATIVE DIAGNOSES: 1. Gangrenous acute cholecystitis with cystic duct obstruction 2. Diabetes type 2, [id number]. 3. Obesity due to excess calories. 4. BMI 31.9. 5. Right upper quadrant abdominal pain. 6. Severe intra-abdominal adhesions 7. Bilateral inguinal hernias. 8. Fatty liver disease with liver cirrhosis. OPERATION: 1. Robotic-assisted da Andra Xi laparoscopic cholecystectomy, multiport with FIREFLY 2. Robot-assisted laparoscopic extensive lysis of adhesions over 1-1/2 hours 3. Placement of round #19 Chet drain right upper quadrant hepatic fossa 4. Peritoneal lavage 2 L normal saline ESTIMATED BLOOD LOSS: 75 mL. SPECIMENS REMOVED: (Gallbladder including gallbladder fluid) COMPLICATIONS: None. Condition: stable Disposition: floor OPERATIVE FINDINGS: 1. Multiple gallstones with severely thickened gallbladder wall over 7 mm. 2. Severe adhesions encompassing the entire gallbladder and omentum carefully dissected free 3. Severe intra-abdominal adhesions along the midline and bilateral upper abdomen secondary to previous open laparotomy and colostomy reversal 4. Inguinal hernia, bilateral 5. Subtotal cholecystectomy along infundibulum to avoid any injury to the cystic structure 6. FIRFELY used to identify gallbladder. 7. Abdomen irrigated with 2 L normal saline for contaminated case from perforated gallbladder along hepatic fossa from full-thickness necrosis. 8. Full-thickness necrosis of gallbladder wall along hepatic fossa with abscess identified. 9. Drain placed along hepatic fossa with moderate irrigation performed. 10. Hepatomegaly with macular-nodular liver cirrhosis. 11. Adhesionolysis over 1-1/2 hours performed. INDICATIONS: The patient is a 47-year-old male who presents with acute cholelcystitis. Surgical intervention with a robotic cholecystectomy was described at length including injury to the biliary tree, bleeding, infection, need for further surgery. Informed consent was obtained. Robotic assisted laparoscopic approach was described. Benefits and risks of the procedure including but not limited to bleeding, infection, injury to the biliary tree was described. Informed consent was obtained. DESCRIPTION OF PROCEDURE: Patient was brought to the operating room, placed in supine position. After general induction, the abdomen had been prepped and draped in standard sterile fashion. The robotic da Andra XI system was primed. After a timeout protocol was performed, the patient had been prepped and draped in standard sterile fashion. The patient was injected with indocyanine green. The robot was docked along the left lateral abdomen. The patient was repositioned in reverse Trendelenburg position. Please note prior to docking of the robot; however, a 5 mm 0 degrees laparoscopic trocar entry was performed along the left upper quadrant. The abdomen was insufflated to 15 mm Hg pressure which he tolerated well. Diagnostic laparoscopy demonstrated no injury to the small bowel or viscera. Bilateral inguinal hernias were identified. Severe intra-abdominal adhesions were identified. Next, two 8 mm robotic ports were placed along the right upper abdomen. Severe hepatomegaly was identified with macronodular cirrhosis. The camera 8-mm port was maintained along the epigastrium. Another 8 mm port was placed along the left upper abdominal wall after exchanging the 5 mm port. Please note that the ports were placed at least 10 to 15 cm away from the target anatomy of the gallbladder. Using a grasper for arm 3, a grasper for arm 2, including hook cautery for arm 1 , the robotic system was docked and primed as described. Instruments were interchanged by the stylist assistant including hook cautery, Bovie cautery scissors and clip appliers. I had sat at the console. Severe intra-abdominal adhesions were identified from a previous open laparotomy. Lysis adhesions over with 1.5 hours were performed to identify a window along the midline for review of the gallbladder. Next, adhesions were identified along the infundibulum of the gallbladder and addressed using hook cautery. The gallbladder fundus was retracted over the dome of the liver. Initial attention was brought to the infundibulum which was gently retracted in the inferior lateral approach. Using a grasper, the cystic duct including the cystic artery was carefully skeletonized however the cystic structures were moderately edematous and obscured by severe adhesions. FIREFLY was used to identify the cystic artery and cystic structures. Decompression of the gallbladder was performed to maneuver the gallbladder. The gallbladder wall was thickened at least by 7 mm. Along the gallbladder wall, necrosis was identified with an abscess. The cystic duct was dilated to 8 mm. The common bile duct was identified. Moderately dilated cystic duct was identified with stone palpated and was milked towards the gallbladder. The gallbladder was moderately distended and decompressed with contamination of the case. With the severity of edema to the cystic structures, a dome down technique using was performed from the gallbladder fundus to the infundibulum. Despite blunt dissection, a short cystic duct was identified. To prevent any injury to the common bile duct, a stapler was taken across the gallbladder infundibulum using 45 mm green load. Hemostasis was checked and found to be adequate. The hepatic fossa was completely dry. The abdomen was copiously irrigated with warm 2-L normal saline solution. The gallbladder was removed from the abdominal cavity using an Endo Catch bag and passed off for further pathological analysis. The hepatic fossa was checked for hemostasis. The robot was undocked. I re-scrubbed into the case. Moderate irrigation was performed over 2-L normal saline. A round #19 drain was placed along hepatic fossa and exited via the right upper quadrant port. Using a 10 mm Endo Catch bag via the left upper quadrant incision, the specimen was removed from the abdominal cavity. All pneumoperitoneum instruments were evacuated from the abdominal cavity. The incisions were reapproximated using 4-0 Monocryl in an interrupted subcuticular fashion. Fascial defect at the left upper quadrant was closed using 0 Vicryl and Manolo Ortiz. Please note along the trocar sites, local anesthetic was placed as a field block prior to insertion of all instruments. The incisions were cleansed using hydrogen peroxide and normal saline. Dermabond was applied to the skin. The drain was tacked to the skin using 2-0 nylon. An Optifoam dressing was placed over the drain site and left upper quadrant. At the end of the procedure needle, sponge, and instrument count had been verified correct by the neurosurgical physician assistant. The patient was transferred to postanesthesia care unit in stable condition. His daughter was notified regarding findings of surgery.
== END 2017-08-07 18:15 | disposition home or self-care (01) | DRG 417 ==
LOC: EC 11:32 → 3SUR 15:56
PROVIDERS: ADMIT Surgery Plastic and Reconstructive Surgery; ATTEND Surgery Plastic and Reconstructive Surgery
PROC: 0DNW4ZZ Release Peritoneum, Percutaneous Endoscopic Approach (ICD-10-PCS; 2017-08-04)
PROC: 8E0W4CZ Robotic Assisted Procedure of Trunk Region, Percutaneous Endoscopic Approach (ICD-10-PCS; 2017-08-04)
PROC: 0FT44ZZ Resection of Gallbladder, Percutaneous Endoscopic Approach (ICD-10-PCS; principal; 2017-08-04 17:05)
DX: K80.01 Calculus of gallbladder with acute cholecystitis with obstruction (principal); K82.2 Perforation of gallbladder; K40.30 Unilateral inguinal hernia, with obstruction, without gangrene, not specified as recurrent; K74.69 Other cirrhosis of liver; E11.9 Type 2 diabetes mellitus without complications; B96.20 Unspecified Escherichia coli [E. coli] as the cause of diseases classified elsewhere; D72.829 Elevated white blood cell count, unspecified; E66.9 Obesity, unspecified; E78.5 Hyperlipidemia, unspecified; I10 Essential (primary) hypertension; K66.0 Peritoneal adhesions (postprocedural) (postinfection); Z90.49 Acquired absence of other specified parts of digestive tract; Z87.891 Personal history of nicotine dependence; Z68.31 Body mass index [BMI] 31.0-31.9, adult
CPT/HCPCS: 36415; 76700; 80053; 81003; 82150; 83036; 83605; 83690; 85025; 87040; 87070; 87075; 87077; 87186; 87205; 88304; 96365; 96366; 99285

== ENCOUNTER → 2017-08-02 | Outpatient (CLI) | payer OTHER ==
--- NOTE | 2017-08-02 09:02 | US ---
EXAMINATION TYPE: US abdomen complete DATE OF EXAM: 08/02/2017 COMPARISON: NONE CLINICAL HISTORY: R10.11 RUQ PAIN. RUQ pain, nausea/vomiting. Difficult and limited exam due to overl richard bowel gas EXAM MEASUREMENTS: Liver Length: 19.8 cm Gallbladder Wall: 0.8 cm CBD: 0.4 cm Spleen: 13.3 cm Right Kidney: 13.1 x 4.9 x 4.6 cm Left Kidney: 12.2 x 5.5 x 5.6 cm Pancreas: Tail obscured by overlying bowel gas, visualized portions show no abnormality Liver: Enlarged. Coarsened, echogenic echotexture suggestive of fatty infiltrate Gallbladder: Gallbladder wall is thickened and edematous. Echogenic foci visualized in the fundus. S ome echogenic debris visualized within, Probable sludge Evidence for sonographic Villaseñor's sign: Yes CBD: wnl as visualized, distal portion obscured by bowel gas Spleen: Measuring upper limits of normal. Probable granuloma visualized Right Kidney: No hydronephrosis or masses seen Left Kidney: No hydronephrosis or masses seen Upper IVC: wnl as visualized Abd Aorta: Proximal portion obscured by bowel gas, visualized portions appear wnl The pancreas is poorly visualized. The liver is enlarged measuring 20 cm. It is echogenic and likely fatty infiltrated. The gallbladder wall is thickened measuring 8 mm. There is a shadowing gallstone within the gallbladd er. There is a positive sonographic Villaseñor's sign. The spleen is upper limits of normal in size without evidence of old granulomatous disease. Both kidneys are unremarkable. Visualized portions of aorta and IVC are normal. IMPRESSION: 1. FINDINGS SUGGESTIVE OF ACUTE CHOLECYSTITIS. 2. HEPATOMEGALY AND FATTY INFILTRATION OF THE LIVER.
== END | disposition home or self-care (01) ==
LOC: RADUSMAIN 08:10
PROVIDERS: ATTEND Internal Medicine
DX: Z53.9 Procedure and treatment not carried out, unspecified reason (principal)
CPT/HCPCS: 76700

== ENCOUNTER → 2017-08-26 | Outpatient (CLI) | payer OTHER ==
[2017-08-26 11:30] LABS: ALT 34 U/L (21-72); AST 29 U/L (17-59); Albumin 4.3 g/dL (3.5-5.0); Alkaline Phosphatase 155 U/L (38-126); Anion Gap 12 mmol/L; Blood Urea Nitrogen 12 mg/dL (9-20); Calcium 10.2 mg/dL (8.4-10.2); Carbon Dioxide 31 mmol/L (22-30); Chloride 100 mmol/L (98-107); Glucose 149 mg/dL (74-99); Potassium 5.1 mmol/L (3.5-5.1); Sodium 143 mmol/L (137-145); Total Bilirubin 0.7 mg/dL (0.2-1.3); Total Protein 7.9 g/dL (6.3-8.2)
[2017-08-26 11:33] LABS: HGB 15.1 gm/dL (13.0-17.5); MCH 29.1 pg (25.0-35.0); MCHC 34.4 g/dL (31.0-37.0); Platelet Count 310 k/uL (150-450); RDW 12.4 % (11.5-15.5); WBC 8.7 k/uL (3.8-10.6)
[2017-08-26 11:36] LABS: MCV 84.7 fL (80.0-100.0)
== END | disposition home or self-care (01) ==
LOC: LABWHC1 10:49
PROVIDERS: ATTEND Surgery Plastic and Reconstructive Surgery
DX: K80.10 Calculus of gallbladder with chronic cholecystitis without obstruction (principal)
CPT/HCPCS: 36415; 80053; 85027

== ENCOUNTER 2017-10-14 14:10 | Observation (INO) | payer OTHER ==
[2017-10-14] MEDS ORDERED: GLUCAGON 1 MG/ML VIAL IVP STA (14:30)
[2017-10-14] MEDS ORDERED: SODIUM CHLORIDE 0.9% 1,000 ML IV ONE ×2 (14:30→19:23)
[2017-10-14] MEDS ORDERED: ONDANSETRON 4 MG/2 ML VIAL IVP STA (14:30)
--- NOTE | 2017-10-14 14:34 | ED ---
General Adult HPI - General Chief complaint: Skin/Abscess/Foreign Body Stated complaint: FB in struck in throat Time Seen by Provider: 10/14/17 14:23 Source: patient Mode of arrival: ambulatory Limitations: no limitations - History of Present Illness Initial comments: Patient is a 47-year-old male presents with a chief complaint of a globus sensation. Patient states that he had a hot dog for breakfast at 9 this morning. He felt like his food gets stuck in his throat. Since that time he has been having pain in his epigastric region and lower chest. Patient states that he tried to drink water but throws up afterwards, he tried to throw to alleviate his sensation but it didn't work. Patient is never had any previous similar episodes. Patient states that his pain has been constant since onset. 5 PM E evaluation of this patient is significant for an elevated white count at 15, 000, alk phos is elevated at 144. On reexamination, the patient is not tolerating by mouth intake, he states he still does have some epigastric pain however it is much improved. Patient spiked a fever while in the emergency department as high as 103F. D-dimer is elevated patient was sent for computed tomography scan of the chest to evaluate for PE and other possible sources of fever CAT scan incidentally found cholelithiasis within the residual gallbladder. Patient states that he has gallbladder removed. I discussed this case with Dr. Aguero, his surgeon, who states that the patient still has about 20% of his gallbladder left. She would like this patient to be admitted to her service for further evaluation. Patient was started on Levaquin. I updated the patient on his results and the care plan, he is agreeable. - Related Data Home Medications Medication Instructions Recorded Confirmed Albuterol Inhaler [Ventolin Hfa 2 puff INHALATION RT-Q6H PRN 10/14/17 10/14/17 Inhaler] Budesonide/Formoterol Fumarate 2 puff INHALATION RT-BID 10/14/17 10/14/17 [Symbicort 160-4.5 Mcg Inhaler] Montelukast Sodium [Singulair] 10 mg PO HS 10/14/17 10/14/17 metFORMIN HCL ER [Glucophage Xr] 500 mg PO DAILY 10/14/17 10/14/17 Previous Rx's Medication Instructions Recorded Linagliptin [Tradjenta] 5 mg PO DAILY #30 tab 08/07/17 Allergies Allergy/AdvReac Type Severity Reaction Status Date / Time No Known Allergies Allergy Verified 10/14/17 14:40 Review of Systems ROS Statement: Those systems with pertinent positive or pertinent negative responses have been documented in the HPI. ROS Other: All systems not noted in ROS Statement are negative. ENT: Reports: throat pain Gastrointestinal: Reports: vomiting Psychiatric: Reports: anxiety Past Medical History Past Medical History: Diabetes Mellitus, Hyperlipidemia History of Any Multi-Drug Resistant Organisms: None Reported Past Surgical History: Bowel Resection Past Psychological History: No Psychological Hx Reported Smoking Status: Former smoker Past Alcohol Use History: Occasional Past Drug Use History: None Reported General Exam Limitations: no limitations General appearance: alert, in no apparent distress Head exam: Present: atraumatic, normocephalic Eye exam: Present: normal appearance ENT exam: Present: normal exam, normal oropharynx, mucous membranes moist Neck exam: Absent: tenderness Respiratory exam: Present: normal lung sounds bilaterally. Absent: respiratory distress, wheezes, rhonchi, stridor, accessory muscle use, decreased breath sounds Cardiovascular Exam: Present: regular rate, normal rhythm GI/Abdominal exam: Present: soft. Absent: distended, tenderness Rectal exam: Present: deferred Extremities exam: Present: normal inspection Back exam: Present: normal inspection Neurological exam: Present: alert, oriented X3, CN II-XII intact, normal gait Psychiatric exam: Present: normal affect, normal mood, anxious Skin exam: Present: warm, dry, intact Course Vital Signs 10/14/17 10/14/17 10/14/17 14:20 15:22 16:25 Temperature 97.9 F 101.3 F H 102.4 F H Pulse Rate 108 H 124 H Respiratory 18 18 Rate Blood Pressure 150/90 126/67 O2 Sat by Pulse 97 97 Oximetry Medical Decision Making - Medical Decision Making Patient presents with a chief complaint of a globus sensation. On initial evaluation, vital signs are stable, patient is in no acute distress. Patient will be given Zofran and glucagon. Given the patient states he is having chest pain and is recently diagnosed diabetic, we'll check basic labs including one troponin as the patient states his pain is unchanged since 9 this morning. We will obtain an EKG. 3:12 PM On reevaluation, patient is not febrile with a temperature of 101.3. Patient will be given Toradol, and sent for a computed tomography scan of the chest. - Lab Data Result diagrams: 10/14/17 15:01 10/14/17 15:01 Lab Results 10/14/17 10/14/17 10/14/17 Range/Units 14:59 15:01 15:01 WBC 15.2 H (3.8-10.6) k/uL RBC 5.69 (4.30-5.90) m/uL Hgb 15.6 (13.0-17.5) gm/dL Hct 46.0 (39.0-53.0) % MCV 80.8 (80.0-100.0) fL MCH 27.4 (25.0-35.0) pg MCHC 33.9 (31.0-37.0) g/dL RDW 12.9 (11.5-15.5) % Plt Count 215 (150-450) k/uL Neutrophils % 94 % Lymphocytes % 3 % Monocytes % 2 % Eosinophils % 1 % Basophils % 0 % Neutrophils # 14.3 H (1.3-7.7) k/uL Lymphocytes # 0.5 L (1.0-4.8) k/uL Monocytes # 0.3 (0-1.0) k/uL Eosinophils # 0.1 (0-0.7) k/uL Basophils # 0.0 (0-0.2) k/uL D-Dimer (<0.60) mg/L FEU Sodium 143 (137-145) mmol/L Potassium 5.0 (3.5-5.1) mmol/L Chloride 106 (98-107) mmol/L Carbon Dioxide 19 L (22-30) mmol/L Anion Gap 18 mmol/L BUN 22 H (9-20) mg/dL Creatinine 0.69 (0.66-1.25) mg/dL Est GFR (CKD-EPI)AfAm >90 (>60 ml/min/1.73 sqM) Est GFR (CKD-EPI)NonAf >90 (>60 ml/min/1.73 sqM) Glucose 148 H (74-99) mg/dL POC Glucose (mg/dL) 147 H (75-99) mg/dL POC Glu Pattern Cleaner ID [place], [place] Plasma Lactic Acid Tony (0.7-2.0) mmol/L Calcium 10.2 (8.4-10.2) mg/dL Total Bilirubin 1.3 (0.2-1.3) mg/dL AST 40 (17-59) U/L ALT 33 (21-72) U/L Alkaline Phosphatase 133 H (38-126) U/L Troponin I (0.000-0.034) ng/mL NT-Pro-B Natriuret Pep pg/mL Total Protein 7.9 (6.3-8.2) g/dL Albumin 4.6 (3.5-5.0) g/dL 10/14/17 10/14/17 10/14/17 Range/Units 15:01 15:01 15:01 WBC (3.8-10.6) k/uL RBC (4.30-5.90) m/uL Hgb (13.0-17.5) gm/dL Hct (39.0-53.0) % MCV (80.0-100.0) fL MCH (25.0-35.0) pg MCHC (31.0-37.0) g/dL RDW (11.5-15.5) % Plt Count (150-450) k/uL Neutrophils % % Lymphocytes % % Monocytes % % Eosinophils % % Basophils % % Neutrophils # (1.3-7.7) k/uL Lymphocytes # (1.0-4.8) k/uL Monocytes # (0-1.0) k/uL Eosinophils # (0-0.7) k/uL Basophils # (0-0.2) k/uL D-Dimer 0.72 H (<0.60) mg/L FEU Sodium (137-145) mmol/L Potassium (3.5-5.1) mmol/L Chloride (98-107) mmol/L Carbon Dioxide (22-30) mmol/L Anion Gap mmol/L BUN (9-20) mg/dL Creatinine (0.66-1.25) mg/dL Est GFR (CKD-EPI)AfAm (>60 ml/min/1.73 sqM) Est GFR (CKD-EPI)NonAf (>60 ml/min/1.73 sqM) Glucose (74-99) mg/dL POC Glucose (mg/dL) (75-99) mg/dL POC Glu Pattern Cleaner ID Plasma Lactic Acid Tony (0.7-2.0) mmol/L Calcium (8.4-10.2) mg/dL Total Bilirubin (0.2-1.3) mg/dL AST (17-59) U/L ALT (21-72) U/L Alkaline Phosphatase (38-126) U/L Troponin I <0.012 (0.000-0.034) ng/mL NT-Pro-B Natriuret Pep 108 pg/mL Total Protein (6.3-8.2) g/dL Albumin (3.5-5.0) g/dL 10/14/17 Range/Units 15:15 WBC (3.8-10.6) k/uL RBC (4.30-5.90) m/uL Hgb (13.0-17.5) gm/dL Hct (39.0-53.0) % MCV (80.0-100.0) fL MCH (25.0-35.0) pg MCHC (31.0-37.0) g/dL RDW (11.5-15.5) % Plt Count (150-450) k/uL Neutrophils % % Lymphocytes % % Monocytes % % Eosinophils % % Basophils % % Neutrophils # (1.3-7.7) k/uL Lymphocytes # (1.0-4.8) k/uL Monocytes # (0-1.0) k/uL Eosinophils # (0-0.7) k/uL Basophils # (0-0.2) k/uL D-Dimer (<0.60) mg/L FEU Sodium (137-145) mmol/L Potassium (3.5-5.1) mmol/L Chloride (98-107) mmol/L Carbon Dioxide (22-30) mmol/L Anion Gap mmol/L BUN (9-20) mg/dL Creatinine (0.66-1.25) mg/dL Est GFR (CKD-EPI)AfAm (>60 ml/min/1.73 sqM) Est GFR (CKD-EPI)NonAf (>60 ml/min/1.73 sqM) Glucose (74-99) mg/dL POC Glucose (mg/dL) (75-99) mg/dL POC Glu Pattern Cleaner ID Plasma Lactic Acid Tony 1.5 (0.7-2.0) mmol/L Calcium (8.4-10.2) mg/dL Total Bilirubin (0.2-1.3) mg/dL AST (17-59) U/L ALT (21-72) U/L Alkaline Phosphatase (38-126) U/L Troponin I (0.000-0.034) ng/mL NT-Pro-B Natriuret Pep pg/mL Total Protein (6.3-8.2) g/dL Albumin (3.5-5.0) g/dL Disposition Clinical Impression: Fever, Cholelithiasis, Esophageal foreign body Disposition: ADMITTED IP TO THIS HOSP Is patient prescribed a controlled substance at d/c from ED?: No Referrals: Lane Flores MD [Primary Care Provider] - 1-2 days Decision to Admit Reason: Admit from EC - Out of Hospital Transfer - Req. Specs Out of Hospital Transfer - Requested Specifics: Other Non-Acute
[2017-10-14 15:06] LABS: Glucose,Whole Blood 147 mg/dL (75-99)
[2017-10-14] MEDS ORDERED: KETOROLAC 30 MG/ML 1 ML VIAL IVP STA (15:13)
[2017-10-14] MEDS ORDERED: RX INFO: IV CONTRAST WAS GIVEN 1 EACH MISC MISCELLANE PRN (15:13)
[2017-10-14 15:26] LABS: Basophils % (A) 0 %; Eosinophils # (A) 0.1 k/uL (0-0.7); Eosinophils % (A) 1 %; HGB 15.6 gm/dL (13.0-17.5); Lymphocytes # (A) 0.5 k/uL (1.0-4.8); Lymphocytes % (A) 3 %; MCH 27.4 pg (25.0-35.0); MCHC 33.9 g/dL (31.0-37.0); MCV 80.8 fL (80.0-100.0); Mean Platelet Volume 7.4; Monocytes # (A) 0.3 k/uL (0-1.0); Monocytes % (A) 2 %; Neutrophils # (A) 14.3 k/uL (1.3-7.7); Neutrophils % (A) 94 %; Platelet Count 215 k/uL (150-450); RBC 5.69 m/uL (4.30-5.90); RDW 12.9 % (11.5-15.5); WBC 15.2 k/uL (3.8-10.6)
[2017-10-14 15:29] LABS: Anion Gap 18 mmol/L; Calcium 10.2 mg/dL (8.4-10.2); Carbon Dioxide 19 mmol/L (22-30); Chloride 106 mmol/L (98-107); Glucose 148 mg/dL (74-99); Sodium 143 mmol/L (137-145); Total Bilirubin 1.3 mg/dL (0.2-1.3)
[2017-10-14 15:32] LABS: ALT 33 U/L (21-72); AST 40 U/L (17-59); Albumin 4.6 g/dL (3.5-5.0); Alkaline Phosphatase 133 U/L (38-126); Blood Urea Nitrogen 22 mg/dL (9-20); Total Protein 7.9 g/dL (6.3-8.2)
--- NOTE | 2017-10-14 15:57 | XR ---
EXAMINATION TYPE: XR chest 2V DATE OF EXAM: 10/14/2017 COMPARISON: Chest x-ray September 19, 2017. HISTORY: Chest pain after eating hotdog. TECHNIQUE: Frontal and lateral views of the chest are obtained. FINDINGS: There is chronic parenchymal change without suspicious focal air space opacity, pleural ef fusion, or pneumothorax seen. The cardiac silhouette size is within normal limits. The osseous str uctures are intact. IMPRESSION: No acute cardiopulmonary process. No significant change from prior.
[2017-10-14] MEDS ORDERED: IBUPROFEN 800 MG TAB PO STA (16:26)
[2017-10-14] MEDS ORDERED: ACETAMINOPHEN TAB 325 MG TAB PO STA (16:26)
--- NOTE | 2017-10-14 16:38 | CT ---
EXAMINATION TYPE: CT angio chest DATE OF EXAM: 10/14/2017 COMPARISON: Radiograph same day HISTORY: 47-year-old male complains of hot dog stuck in throat. Elevated D-dimer. TECHNIQUE: Contiguous axial scanning of the chest performed with IV Contrast, patient injected with 1 00 mL of Isovue 370. Coronal/sagittal MIP reconstructions performed. CT DLP: 558 mGycm Automated exposure control for dose reduction was used. FINDINGS: Heart is normal size without pericardial effusion. Mild coronary vessel calcifications are present. Aorta normal caliber with conventional dorsal branching anatomy. No thoracic lymphadenopathy by CT size criteria. Calcified right hilar lymph nodes and a couple calc ified granulomas in the spleen. There is both suboptimal opacification of the pulmonary arterial system as well as patient breathing artifacts. No large central or lobar pulmonary embolus. Many of the segmental and more distal arterial branches are limited. No definite embolus to the segmental level. Mild diffuse bronchial wall thickening. A couple small emphysematous cysts. Strandy atelectasis anter ior right midlung and some hazy densities likely atelectasis at the lung bases. There is some surgical material along the gallbladder fossa. There seems to be the gallbladder presen t with cholelithiasis measuring 4 mm. Spleen is enlarged measuring 17.0 cm. Small hiatal hernia. Bones: No osseous destructive process. Mild degenerative disc disease lower thoracic spine. IMPRESSION: 1. MILD DIFFUSE BRONCHIAL WALL THICKENING COULD REPRESENT BRONCHITIS OR ASTHMA. 2. COMBINATION OF SUBOPTIMAL CONTRAST BOLUS AND PATIENT BREATHING ARTIFACTS DEGRADES THE EXAM. NO DEF INITE PULMONARY EMBOLUS TO THE SEGMENTAL LEVEL. 3. IN THE VISUALIZED UPPER ABDOMEN, THERE IS SPLENOMEGALY (17.0 CM), SMALL HIATAL HERNIA, CHOLELITHIA SIS, AND SUGGESTION OF SOME SURGICAL MATERIAL ALONG THE GALLBLADDER FOSSA. CLINICALLY CORRELATE.
[2017-10-14] MEDS ORDERED: NALOXONE 0.4 MG/ML 1 ML VIAL IV PRN (16:54)
[2017-10-14] MEDS ORDERED: LEVOFLOXACIN 750MG-D5W PMX 750 MG in DEXTROSE/WATER 1 150ML.BAG IVPB STA (16:59)
--- NOTE | 2017-10-14 17:54 | US ---
EXAMINATION TYPE: US gallbladder DATE OF EXAM: 10/14/2017 COMPARISON: NONE CLINICAL HISTORY: Pain. Pain EXAM MEASUREMENTS: Liver Length: 20.3 cm Gallbladder Wall: Surgically absent cm CBD: 0.6 cm Right Kidney: 12.9 x 4.6 x 5.1 cm Pancreas: Obscured by bowel gas Liver: Increased attenuation Gallbladder: Surgically absent CBD: wnl Right Kidney: No hydronephrosis or masses seen IMPRESSION: 1. Fatty liver versus diffuse hepatocellular disease.
--- NOTE | 2017-10-14 19:28 | P.GSHP ---
History of Present Illness H&P Date: 10/14/17 Chief Complaint: Abdominal pain The patient is a 47-year-old gentleman who has history of past cholecystectomy 3 months ago. At that time he presented with acute cholecystitis. He had a subtotal cholecystectomy. He had been doing well. He presented to the emergency room tody after developing acute dysphagia as he had a hotdog stuck in the esophagus. He reports not drinking fluids all day. He had multiple studies including CT of the chest including chest x-ray that demonstrated questionable gallstones despite his prior cholecystectomy. Patient had been dehydrated. Additionally, he had fever of unknown origin although he reports resolution of his epigastric abdominal pain. He also had tachycardia. With this his elevated WBC count including presentation, the patient was initially admitted. Since admission, abdominal pain resolved. Initial fever is resolved. He reports moderate thirst as he has had no IV fluids or oral fluids for more than 15 hrs. - Review of Systems Comment: REVIEW OF ORGAN SYSTEMS: CONSTITUTIONAL: Had spontaneous fever. No chills. HEENT: Denies any trouble with vision, hearing or nosebleeds. No dysphagia with hotdog stuck in esophagus. LYMPHATIC: The patient denies any lumps and bumps around the neck. ENDOCRINE: Denies any thyroid disorders. Has blood sugar glucose intolerance. RESPIRATORY: Denies pneumonia. Has asthma. CARDIOVASCULAR: No recent heart attacks. GASTROINTESTINAL: Has heart burn. No constipation or bright red blood per rectum. GENITOURINARY: Denies any blood in urine or increased urinary frequency. MUSCULOSKELETAL: Has occasional back pain, stiffness, joint arthritis. NEUROLOGIC: Denies any numbness or tingling along the distal extremities. No seizure disorders or headaches. PSYCHIATRIC: Denies depression or suidical ideation. HEMATOLOGIC: Denies any abnormal bleeding or bruising. BREASTS: Denies any breast lumps, pain or nipple discharge. Past Medical History Past Medical History: Diabetes Mellitus, Hyperlipidemia History of Any Multi-Drug Resistant Organisms: None Reported Past Surgical History: Bowel Resection Past Psychological History: No Psychological Hx Reported Smoking Status: Former smoker Past Alcohol Use History: Occasional Past Drug Use History: None Reported - Past Family History Father Family Medical History: Diabetes Mellitus Mother Additional Family Medical History / Comment(s): brain tumor Medications and Allergies Home Medications Medication Instructions Recorded Confirmed Type Linagliptin [Tradjenta] 5 mg PO DAILY #30 tab 08/07/17 10/14/17 Rx Albuterol Inhaler [Ventolin Hfa 2 puff INHALATION RT-Q6H PRN 10/14/17 10/14/17 History Inhaler] Budesonide/Formoterol Fumarate 2 puff INHALATION RT-BID 10/14/17 10/14/17 History [Symbicort 160-4.5 Mcg Inhaler] Montelukast Sodium [Singulair] 10 mg PO HS 10/14/17 10/14/17 History metFORMIN HCL ER [Glucophage Xr] 500 mg PO DAILY 10/14/17 10/14/17 History Allergies Allergy/AdvReac Type Severity Reaction Status Date / Time No Known Allergies Allergy Verified 10/14/17 14:40 Surgical - Exam Vital Signs Temp Pulse Resp BP Pulse Ox 97.9 F 108 H 18 150/90 97 10/14/17 14:20 10/14/17 14:20 10/14/17 14:20 10/14/17 14:20 10/14/17 14:20 GENERAL: Well developed and in no acute distress. Pleasant. HEENT: No sclera icterus. Extraocular movements grossly intact. Moist buccal mucosa. Head is atraumatic, normocephalic. Hears conversational speech. No nasal drainage. NECK: Supple without lymphadenopathy. No JV distention. CHEST: Non-labored respirations and equal bilateral excursions. CARDIOVASCULAR: Tachycardic. Palpable 2+ radial pulses. ABDOMEN: Soft, nontender. Nondistended. MUSCULOSKELETAL: No clubbing, cyanosis or edema. NEUROLOGIC: No focal or lateralizing signs. PSYCH: Appropriate affect. Alert and oriented to person, place and time. SKIN: Dry skin turgor. Well perfused. Results - Labs 10/14/17 15:10/14/17 15:01 Abnormal Lab Results - Last 24 Hours (Table) 10/14/17 10/14/17 10/14/17 Range/Units 14:59 15: 15:01 WBC 15.2 H (3.8-10.6) k/uL Neutrophils # 14.3 H (1.3-7.7) k/uL Lymphocytes # 0.5 L (1.0-4.8) k/uL D-Dimer (<0.60) mg/L FEU Carbon Dioxide 19 L (22-30) mmol/L BUN 22 H (9-20) mg/dL Glucose 148 H (74-99) mg/dL POC Glucose (mg/dL) 147 H (75-99) mg/dL Alkaline Phosphatase 133 H (38-126) U/L 10/14/17 Range/Units 15:01 WBC (3.8-10.6) k/uL Neutrophils # (1.3-7.7) k/uL Lymphocytes # (1.0-4.8) k/uL D-Dimer 0.72 H (<0.60) mg/L FEU Carbon Dioxide (22-30) mmol/L BUN (9-20) mg/dL Glucose (74-99) mg/dL POC Glucose (mg/dL) (75-99) mg/dL Alkaline Phosphatase (38-126) U/L Diabetes panel 10/14/17 Range/Units 15:01 Sodium 143 (137-145) mmol/L Potassium 5.0 (3.5-5.1) mmol/L Chloride 106 (98-107) mmol/L Carbon Dioxide 19 L (22-30) mmol/L BUN 22 H (9-20) mg/dL Creatinine 0.69 (0.66-1.25) mg/dL Glucose 148 H (74-99) mg/dL Calcium 10.2 (8.4-10.2) mg/dL AST 40 (17-59) U/L ALT 33 (21-72) U/L Alkaline Phosphatase 133 H (38-126) U/L Total Protein 7.9 (6.3-8.2) g/dL Albumin 4.6 (3.5-5.0) g/dL Calcium panel 10/14/17 Range/Units 15:01 Calcium 10.2 (8.4-10.2) mg/dL Albumin 4.6 (3.5-5.0) g/dL Pituitary panel 10/14/17 Range/Units 15:01 Sodium 143 (137-145) mmol/L Potassium 5.0 (3.5-5.1) mmol/L Chloride 106 (98-107) mmol/L Carbon Dioxide 19 L (22-30) mmol/L BUN 22 H (9-20) mg/dL Creatinine 0.69 (0.66-1.25) mg/dL Glucose 148 H (74-99) mg/dL Calcium 10.2 (8.4-10.2) mg/dL Adrenal panel 10/14/17 Range/Units 15:01 Sodium 143 (137-145) mmol/L Potassium 5.0 (3.5-5.1) mmol/L Chloride 106 (98-107) mmol/L Carbon Dioxide 19 L (22-30) mmol/L BUN 22 H (9-20) mg/dL Creatinine 0.69 (0.66-1.25) mg/dL Glucose 148 H (74-99) mg/dL Calcium 10.2 (8.4-10.2) mg/dL Total Bilirubin 1.3 (0.2-1.3) mg/dL AST 40 (17-59) U/L ALT 33 (21-72) U/L Alkaline Phosphatase 133 H (38-126) U/L Total Protein 7.9 (6.3-8.2) g/dL Albumin 4.6 (3.5-5.0) g/dL - Imaging Chest x-ray: report reviewed, image reviewed CT scan - chest: image reviewed (CT of the chest revealed with questionable bronchitis. Staple line from cholecystectomy identified.) US - abdomen: report reviewed (Gallbladder surgically absent with fatty liver disease.), image reviewed Assessment and Plan (1) Dehydration Status: Acute Code(s): E86.0 - DEHYDRATION SNOMED Code(s): 72796775 (2) Tachycardia Status: Acute Code(s): R00.0 - TACHYCARDIA, UNSPECIFIED SNOMED Code(s): 5056026 (3) Leukocytosis Status: Acute Code(s): D72.829 - ELEVATED WHITE BLOOD CELL COUNT, UNSPECIFIED SNOMED Code(s): 923292936 (4) Esophageal foreign body Status: Acute Code(s): T18.108A - UNSP FOREIGN BODY IN ESOPHAGUS CAUSING OTH INJURY, INIT SNOMED Code(s): 16828143 (5) Fever Status: Acute Code(s): R50.9 - FEVER, UNSPECIFIED SNOMED Code(s): 462959090 Plan: 1. Leukocytosis including fever likely atelectasis versus bronchitis or computed tomography scan. 2. Recommend IV fluids. 3. May discharge home as patient symptoms resolved. 4. He will follow-up in the office tomorrow and will schedule for outpatient EGD.
--- NOTE | 2017-10-14 20:36 | P.DS ---
Providers Date of admission: 10/14/17 16:54 Expected date of discharge: 10/14/17 Attending physician: Dariana Winchester Primary care physician: Sandra Sherman - Discharge Diagnosis(es) (1) Dehydration Status: Acute (2) Diabetes type 2, controlled Status: Acute (3) Esophageal foreign body Status: Acute (4) Fever Status: Acute (5) Leukocytosis Status: Acute (6) Obesity (BMI 30.0-34.9) Status: Acute Hospital Course: The patient is a 47-year-old gentleman was admitted secondary to leukocytosis including fever and tachycardia. He had an abnormal CT of the chest which questioned possible cholelithiasis. Gallbladder ultrasound demonstrated and confirmed cholecystectomy. Upon admission, his fevers resolved. He had moderate dehydration. IV fluid bolus was given. His symptoms resolved. The patient was discharged home with instructions to follow-up 24 hours in the office. Pertinent Studies: CT chest demonstrating no pulmonary embolism. Questionable gallstones. Confirmatory ultrasound demonstrated cholecystectomy without gallstones. Patient Condition at Discharge: Stable Plan - Discharge Summary New Discharge Prescriptions: No Action Linagliptin [Tradjenta] 5 mg PO DAILY #30 tab Budesonide/Formoterol Fumarate [Symbicort 160-4.5 Mcg Inhaler] 2 puff INHALATION RT-BID Albuterol Inhaler [Ventolin Hfa Inhaler] 2 puff INHALATION RT-Q6H PRN PRN Reason: Shortness Of Breath metFORMIN HCL ER [Glucophage Xr] 500 mg PO DAILY Montelukast Sodium [Singulair] 10 mg PO HS Discharge Medication List Linagliptin [Tradjenta] 5 mg PO DAILY #30 tab 08/07/17 [Rx] Albuterol Inhaler [Ventolin Hfa Inhaler] 2 puff INHALATION RT-Q6H PRN 10/14/17 [ History] Budesonide/Formoterol Fumarate [Symbicort 160-4.5 Mcg Inhaler] 2 puff INHALATION RT-BID 10/14/17 [History] Montelukast Sodium [Singulair] 10 mg PO HS 10/14/17 [History] metFORMIN HCL ER [Glucophage Xr] 500 mg PO DAILY 10/14/17 [History] Follow up Appointment(s)/Referral(s): Lane Flores MD [Primary Care Provider] - 1-2 days Dariana Winchester MD [STAFF PHYSICIAN] - 10/15/17 Patient Instructions/Handouts: Dehydration (DC), Esophageal Foreign Body (GEN) , Upper Endoscopy (DC), Atelectasis (DC) Activity/Diet/Wound Care/Special Instructions: Please follow-up in the office for tomorrow for EGD scheduled as outpatient. Office to re-check vitals. Discharge Disposition: HOME SELF-CARE
[2017-10-14 20:43] VITALS: BP 131/84; PULSE 110; RESP 16; TEMP 98.9
== END 2017-10-14 20:47 | disposition home or self-care (01) ==
LOC: EC 14:10 → 3SUR 16:54
PROVIDERS: ADMIT Student in an Organized Health Care Education/Training Program; ATTEND Surgery Plastic and Reconstructive Surgery
DX: E86.0 Dehydration (principal); R50.9 Fever, unspecified; E11.9 Type 2 diabetes mellitus without complications; R13.10 Dysphagia, unspecified; E78.5 Hyperlipidemia, unspecified; E66.9 Obesity, unspecified; Z68.31 Body mass index [BMI] 31.0-31.9, adult; D72.829 Elevated white blood cell count, unspecified; Z90.49 Acquired absence of other specified parts of digestive tract; Z79.84 Long term (current) use of oral hypoglycemic drugs; Z79.51 Long term (current) use of inhaled steroids; Z79.899 Other long term (current) drug therapy; Z87.891 Personal history of nicotine dependence; Z83.3 Family history of diabetes mellitus
CPT/HCPCS: 96361; 96374; 96375; 99285; 36415; 93005; 85379; 83880; 80053; 83605; 84484; 85025; 71046; 76705; 71275; G0378; J1610; J2405; J1885; J1956; Q9967

== ENCOUNTER 2017-11-21 09:23 | Day surgery (SDC) | payer OTHER ==
[2017-11-20 08:59] VITALS: BMI 31.5
[~2017-11-21 09:23] MED LIST: LACTATED RINGERS 1,000 ML IV SCH
[2017-11-21 09:39] VITALS: RESP 16; TEMP 98.6
[2017-11-21] MEDS ORDERED: LIDOCAINE 1% 20 ML VIAL (10MG/ML) FOR IV START INTRADERMA ONE (09:47)
[2017-11-21 09:48] LABS: Glucose,Whole Blood 186 mg/dL (75-99)
[2017-11-21] MEDS ORDERED: LIDOCAINE 1% INJ 10MG/ML (20 ML MDV) ONE (10:55)
[2017-11-21] MEDS ORDERED: PROPOFOL 10 MG/ML 20 ML VIAL IV ONE (10:55)
--- NOTE | 2017-11-21 11:20 | P.GSHP ---
History of Present Illness H&P Date: 11/21/17 CHIEF COMPLAINT: GERD HISTORY OF PRESENT ILLNESS: The patient is a 47-year-old male who presents reports gastroesophageal reflux disease. Upper endoscopy was offered for further evaluation and management. PAST MEDICAL HISTORY: Please see list. PAST SURGICAL HISTORY: Please see list. MEDICATIONS: Please see list. ALLERGIES: Please see list. SOCIAL HISTORY: No illicit drug use FAMILY HISTORY: No reports of Crohn disease or ulcerative colitis. REVIEW OF ORGAN SYSTEMS: CONSTITUTIONAL: No reports of fevers or chills. GI: Denies any blood in stools or constipation. PHYSICAL EXAM: VITAL SIGNS: Stable GENERAL: Well-developed and pleasant in no acute distress. HEENT: No scleral icterus. Extraocular movements grossly intact. Moist buccal mucosa. NECK: Supple without lymphadenopathy. CHEST: Unlabored respirations. Equal bilateral excursions. CARDIOVASCULAR: Regular rate and rhythm. Distal 2+ pulses. ABDOMEN: Soft, nondistended. MUSCULOSKELETAL: No clubbing, cyanosis, or edema. ASSESSMENT: 1. Gastroesophageal reflux disease PLAN: 1. Recommend proceeding with an upper endoscopy Past Medical History Past Medical History: Asthma, Diabetes Mellitus, GERD/Reflux, Hyperlipidemia Additional Past Medical History / Comment(s): HX GOUT, KIDNEY STONES., HEMORRHOIDS., HX OF RUPTURED DIVERTICULITIS WITH SURGERY., ER VISIT 10/14/17 FOR DIFFICULTY SWALLOWING & PAIN. History of Any Multi-Drug Resistant Organisms: None Reported Past Surgical History: Appendectomy, Bowel Resection, Cholecystectomy Additional Past Surgical History / Comment(s): COLOSTOMY AND REVERSAL Past Anesthesia/Blood Transfusion Reactions: No Reported Reaction Past Psychological History: No Psychological Hx Reported Smoking Status: Former smoker Past Alcohol Use History: Occasional Additional Past Alcohol Use History / Comment(s): QUIT SMOKING OVER 10 YRS AGO. SMOKED TOBACCO FOR 5 YEARS AND CHEWED TOBACCO AFTER THAT. Past Drug Use History: None Reported - Past Family History Father Family Medical History: Diabetes Mellitus Mother Additional Family Medical History / Comment(s): brain tumor Medications and Allergies Home Medications Medication Instructions Recorded Confirmed Type Linagliptin [Tradjenta] 5 mg PO DAILY #30 tab 08/07/17 11/21/17 Rx Montelukast Sodium [Singulair] 10 mg PO HS 10/14/17 11/21/17 History metFORMIN HCL ER [Glucophage Xr] 500 mg PO DAILY 10/14/17 11/21/17 History Inhalers-Pt To Bring 1 puff INHALATION DIRECTED PRN 11/20/17 11/21/17 History Pantoprazole [Protonix] 0 mg PO DAILY 11/20/17 11/21/17 History Metoclopramide [Reglan] 10 mg PO ACHS #30 tab 11/21/17 Rx Allergies Allergy/AdvReac Type Severity Reaction Status Date / Time No Known Allergies Allergy Verified 11/20/17 08:46 Surgical - Exam Vital Signs Temp Pulse Resp Pulse Ox 98.6 F 94 16 97 11/21/17 09:37 11/21/17 09:37 11/21/17 09:37 11/21/17 09:37 Results - Labs Abnormal Lab Results - Last 24 Hours (Table) 11/21/17 Range/Units 09:45 POC Glucose (mg/dL) 186 H (75-99) mg/dL
[2017-11-21 11:30] VITALS: BP 136/79; PULSE 94
--- NOTE | 2017-11-21 11:35 | P.PCN ---
Date of Procedure: 11/21/17 Description of Procedure: PREOPERATIVE DIAGNOSIS: Gastroesophageal reflux disease. Dysphagia POSTOPERATIVE DIAGNOSIS: Gastritis. Gastroesophageal reflux disease. Gastroparesis with retained food Diaphragmatic hiatal hernia without obstruction. OPERATION: Esophagogastroduodenoscopy with biopsies along antrum. SURGEON: Dariana Winchester MD ANESTHESIA: MAC. INDICATIONS: The patient is a 47-year-old male who presents with a history of reflux disease. Benefits and risks of the procedure were described. Informed consent was obtained. DESCRIPTION: The patient was brought into the endoscopy suite and laid in the left lateral decubitus position. An Olympus gastroscope was passed along the posterior oropharynx down to the distal esophagus where the squamocolumnar junction was encountered at 40 cm from the incisors. The stomach was entered and moderate food was found. Additional findings are listed below. Biopsies with cold forceps were obtained of the antrum. The first through third portion of the duodenum was examined and unremarkable. Retroflexion of the scope confirmed Hill grade 4 lower esophageal valve. The squamocolumnar junction demostrated LA grade A erosive esophagitis. The stomach was desufflated. The patient tolerated the procedure well. FINDINGS: Squamocolumnar junction 40 cm from the incisors. Diaphragmatic hiatus at 41 cm. Hiatal hernia 1 cm. Hill grade 4 lower esophageal valve. LA grade A erosive esophagitis. No active duodenitis. Moderate retained food in stomach consistent with gastroparesis Gastritis, superficial chronic RECOMMENDATIONS: Start medical therapy with Reglan Upper endoscopy as needed. Plan - Discharge Summary New Discharge Prescriptions: New Metoclopramide [Reglan] 10 mg PO ACHS #30 tab No Action Linagliptin [Tradjenta] 5 mg PO DAILY #30 tab metFORMIN HCL ER [Glucophage Xr] 500 mg PO DAILY Montelukast Sodium [Singulair] 10 mg PO HS Pantoprazole [Protonix] 0 mg PO DAILY Inhalers-Pt To Bring 1 puff INHALATION DIRECTED PRN PRN Reason: Shortness Of Breath Discharge Medication List Linagliptin [Tradjenta] 5 mg PO DAILY #30 tab 08/07/17 [Rx] Montelukast Sodium [Singulair] 10 mg PO HS 10/14/17 [History] metFORMIN HCL ER [Glucophage Xr] 500 mg PO DAILY 10/14/17 [History] Inhalers-Pt To Bring 1 puff INHALATION DIRECTED PRN 11/20/17 [History] Pantoprazole [Protonix] 0 mg PO DAILY 11/20/17 [History] Metoclopramide [Reglan] 10 mg PO ACHS #30 tab 11/21/17 [Rx] Follow up Appointment(s)/Referral(s): Dariana Winchester MD [STAFF PHYSICIAN] - 12/02/17 Patient Instructions/Handouts: *[facility] - (Anesthesia) Endoscopy Discharge Instructions, Hiatal Hernia (GEN), Gastritis (DC), Diabetic Gastroparesis (DC), Gastroesophageal Reflux Disease (DC), Gastroesophageal Reflux Disease (GEN), Upper Endoscopy (DC) Discharge Disposition: HOME SELF-CARE
== END 2017-11-21 11:51 | disposition home or self-care (01) ==
LOC: ORWHC2ENDO 09:23
PROVIDERS: ATTEND Surgery Plastic and Reconstructive Surgery
DX: K29.30 Chronic superficial gastritis without bleeding (principal); K22.10 Ulcer of esophagus without bleeding; K44.9 Diaphragmatic hernia without obstruction or gangrene; K31.84 Gastroparesis; K21.0 Gastro-esophageal reflux disease with esophagitis; E78.5 Hyperlipidemia, unspecified; E11.43 Type 2 diabetes mellitus with diabetic autonomic (poly)neuropathy; Z79.84 Long term (current) use of oral hypoglycemic drugs; J45.909 Unspecified asthma, uncomplicated; Z87.442 Personal history of urinary calculi; Z87.891 Personal history of nicotine dependence; Z79.899 Other long term (current) drug therapy
CPT/HCPCS: 88305; 43239; J2001; J2704

== ENCOUNTER 2018-06-15 10:49 | Emergency (ER) | payer OTHER ==
[2018-06-15 11:06] VITALS: BP 129/77; PULSE 103; RESP 20; TEMP 98.3
--- NOTE | 2018-06-15 11:29 | ED ---
General Adult HPI - General Chief complaint: Extremity Injury, Lower Stated complaint: fall, lt knee injury Time Seen by Provider: 06/15/18 11:17 Source: patient, RN notes reviewed Mode of arrival: wheelchair Limitations: no limitations - History of Present Illness Initial comments: Patient's a 48-year-old male presented to the emergency room today with a chief complaint of an injury to the left knee that occurred last night. He does admit that he slipped on the ice and fell directly down onto the left knee. He does admit to some swelling to the area today. States pain worse with extension. Patient denies any other injuries or complaints. Patient denies any recent fever, chills, shortness of breath, chest pain, back pain, abdominal pain , nausea or vomiting, numbness or tingling, headaches or visual changes, or any other complaints. - Related Data Home Medications Medication Instructions Recorded Confirmed Montelukast Sodium [Singulair] 10 mg PO HS 10/14/17 11/21/17 metFORMIN HCL ER [Glucophage Xr] 500 mg PO DAILY 10/14/17 11/21/17 Inhalers-Pt To Bring 1 puff INHALATION DIRECTED PRN 11/20/17 11/21/17 Pantoprazole [Protonix] 0 mg PO DAILY 11/20/17 11/21/17 Previous Rx's Medication Instructions Recorded Linagliptin [Tradjenta] 5 mg PO DAILY #30 tab 08/07/17 Metoclopramide [Reglan] 10 mg PO ACHS #30 tab 11/21/17 Ibuprofen [Motrin] 800 mg PO Q6HR #30 tab 06/15/18 Allergies Allergy/AdvReac Type Severity Reaction Status Date / Time No Known Allergies Allergy Verified 06/15/18 11:05 Review of Systems ROS Statement: Those systems with pertinent positive or pertinent negative responses have been documented in the HPI. ROS Other: All systems not noted in ROS Statement are negative. Past Medical History Past Medical History: Asthma, Diabetes Mellitus, GERD/Reflux, Hyperlipidemia Additional Past Medical History / Comment(s): HX GOUT, KIDNEY STONES., HEMORRHOIDS., HX OF RUPTURED DIVERTICULITIS WITH SURGERY., ER VISIT 10/14/17 FOR DIFFICULTY SWALLOWING & PAIN. History of Any Multi-Drug Resistant Organisms: None Reported Past Surgical History: Appendectomy, Bowel Resection, Cholecystectomy Additional Past Surgical History / Comment(s): COLOSTOMY AND REVERSAL Past Anesthesia/Blood Transfusion Reactions: No Reported Reaction Past Psychological History: No Psychological Hx Reported Smoking Status: Former smoker Past Alcohol Use History: Occasional Past Drug Use History: None Reported - Past Family History Father Family Medical History: Diabetes Mellitus Mother Additional Family Medical History / Comment(s): brain tumor General Exam - General Exam Comments Initial Comments: General: The patient is awake and alert, in no distress, and does not appear acutely ill. Neck: The neck is supple, there is no tenderness or JVD. Musculoskeletal: Does have some moderate swelling to left knee. Patient shows limited range of motion with extension due to pain. He is tender over the patella. No other bony tenderness. No tenderness down to the left ankle. Sensations are intact. Neurological: A&O x 3. CN II-XII intact, There are no obvious motor or sensory deficits. Coordination appears grossly intact. Speech is normal. Skin: Skin is warm and dry and no rashes or lesions are noted. Psychiatric: Normal mood and affect. Limitations: no limitations Course Vital Signs 06/15/18 11:04 Temperature 98.3 F Pulse Rate 103 H Respiratory 20 Rate Blood Pressure 129/77 O2 Sat by Pulse 98 Oximetry Medical Decision Making - Medical Decision Making X-ray reviewed and does show a comminuted patella fracture. No other acute abnormality. Results were discussed with patient. Patient placed in knee immobilizer here in the emergency room and given a prescription for crutches. Advised following up with orthopedics over the next 2 days. Advised ice elevate the affected area. Disposition Clinical Impression: Patella fracture Disposition: HOME SELF-CARE Condition: Good Instructions: Patellar Fracture (ED) Additional Instructions: Please use knee immobilizer when up and moving around. Please continue to ice elevate the affected areas 4 times daily for 20 minutes at a time. Please use crutches when up and moving. Please use Tylenol/ibuprofen for pain as needed. Return here to the emergency room for any other concerns. Prescriptions: Ibuprofen [Motrin] 800 mg PO Q6HR #30 tab Is patient prescribed a controlled substance at d/c from ED?: No Referrals: Lane Flores MD [Primary Care Provider] - 1-2 days Winston Bishop MD [STAFF PHYSICIAN] - 1-2 days Time of Disposition: 12:22
--- NOTE | 2018-06-15 11:49 | XR ---
EXAMINATION TYPE: XR knee 4V LT DATE OF EXAM: 06/15/2018 COMPARISON: None HISTORY: Pain after slipping TECHNIQUE: 4 view left knee FINDINGS: There is a comminuted fracture of the patella. Moderate joint effusion is present. Some sup erficial soft tissue swelling is over the fracture site. IMPRESSION: 1. Comminuted fracture patella. 2. Moderate joint effusion.
== END 2018-06-15 13:23 | disposition home or self-care (01) ==
LOC: EC 10:49
DX: S82.042A Displaced comminuted fracture of left patella, initial encounter for closed fracture (principal); J45.909 Unspecified asthma, uncomplicated; E11.9 Type 2 diabetes mellitus without complications; K21.9 Gastro-esophageal reflux disease without esophagitis; Z87.891 Personal history of nicotine dependence; Z79.84 Long term (current) use of oral hypoglycemic drugs; Z79.899 Other long term (current) drug therapy; W00.0XXA Fall on same level due to ice and snow, initial encounter
CPT/HCPCS: 73564; 99283; L1830 ×2

== ENCOUNTER → 2018-06-22 | Outpatient (CLI) | payer OTHER ==
[2018-06-22 11:38] LABS: Potassium 4.8 mmol/L (3.5-5.1)
[2018-06-22 11:44] LABS: Basophils # (A) 0.1 k/uL (0-0.2); Basophils % (A) 1 %; Eosinophils # (A) 0.4 k/uL (0-0.7); Eosinophils % (A) 4 %; HCT 45.1 % (39.0-53.0); HGB 14.6 gm/dL (13.0-17.5); Lymphocytes # (A) 1.7 k/uL (1.0-4.8); Lymphocytes % (A) 18 %; MCH 27.5 pg (25.0-35.0); MCHC 32.3 g/dL (31.0-37.0); MCV 85.1 fL (80.0-100.0); Mean Platelet Volume 7.2; Monocytes # (A) 0.6 k/uL (0-1.0); Monocytes % (A) 6 %; Neutrophils # (A) 6.5 k/uL (1.3-7.7); Neutrophils % (A) 69 %; Platelet Count 277 k/uL (150-450); RDW 13.3 % (11.5-15.5); WBC 9.5 k/uL (3.8-10.6)
== END | disposition home or self-care (01) ==
LOC: LABPAT 09:56
PROVIDERS: ATTEND Orthopaedic Surgery
DX: Z01.812 Encounter for preprocedural laboratory examination (principal); S80.02XD Contusion of left knee, subsequent encounter
CPT/HCPCS: 36415; 80051; 85025

== ENCOUNTER 2018-10-21 09:53 | Observation (INO) | payer OTHER ==
[2018-10-21] MEDS ORDERED: GLUCAGON 1 MG/ML VIAL IVP STA (10:34)
[2018-10-21] MEDS ORDERED: DIAZEPAM 5 MG/ML 2 ML INJ IVP STA (10:34)
[2018-10-21] MEDS ORDERED: NITROGLYCERIN SL TABS 0.4 MG TAB SUBLINGUAL STA (10:35)
[2018-10-21] MEDS ORDERED: METOCLOPRAMIDE 5 MG/ML 2 ML VIAL IVP STA (10:36)
--- NOTE | 2018-10-21 11:08 | ED ---
General Adult HPI - General Chief complaint: Chest Pain Stated complaint: Poss Food Stuck Time Seen by Provider: 10/21/18 10:00 Source: patient, RN notes reviewed Mode of arrival: ambulatory Limitations: no limitations - History of Present Illness Initial comments: This is a 48-year-old male who presents emergency Department complaining that he swells some tuna earlier and it seems to be stuck in his throat. Patient states this happened a year ago as well. Patient states he is able to drink some fluid but has not tried eating anything. Patient denies any difficulty breathing shortest breath per patient denies any palpitations. Patient denies any nausea vomiting. Patient denies any recent fever chills or cough. Patient denies any abdominal pain. Patient made statements he did not want any cardiac workup at all. - Related Data Home Medications Medication Instructions Recorded Confirmed Montelukast Sodium [Singulair] 10 mg PO HS 10/14/17 10/21/18 metFORMIN HCL ER [Glucophage Xr] 500 mg PO DAILY 10/14/17 10/21/18 Atorvastatin [Lipitor] 10 mg PO HS 10/21/18 10/21/18 Previous Rx's Medication Instructions Recorded Linagliptin [Tradjenta] 5 mg PO DAILY #30 tab 08/07/17 Allergies Allergy/AdvReac Type Severity Reaction Status Date / Time No Known Allergies Allergy Verified 10/21/18 10:05 Review of Systems ROS Statement: Those systems with pertinent positive or pertinent negative responses have been documented in the HPI. ROS Other: All systems not noted in ROS Statement are negative. Past Medical History Past Medical History: Asthma, Diabetes Mellitus, GERD/Reflux, Hyperlipidemia Additional Past Medical History / Comment(s): HX GOUT, KIDNEY STONES., HEMORRHOIDS., HX OF RUPTURED DIVERTICULITIS WITH SURGERY. History of Any Multi-Drug Resistant Organisms: None Reported Past Surgical History: Appendectomy, Bowel Resection, Cholecystectomy Additional Past Surgical History / Comment(s): COLOSTOMY AND REVERSAL Past Anesthesia/Blood Transfusion Reactions: No Reported Reaction Past Psychological History: No Psychological Hx Reported Smoking Status: Former smoker - Past Family History Father Family Medical History: Diabetes Mellitus Mother Family Medical History: No Reported History Additional Family Medical History / Comment(s): brain tumor General Exam - General Exam Comments Initial Comments: GENERAL: Patient is well-developed and well-nourished. Patient is nontoxic and well- hydrated and is in mild distress. ENT: Neck is soft and supple. No significant lymphadenopathy is noted. Oropharynx is clear. Moist mucous membranes. Neck has full range of motion without eliciting any pain. EYES: The sclera were anicteric and conjunctiva were pink and moist. Extraocular movements were intact and pupils were equal round and reactive to light. Eyelids were unremarkable. PULMONARY: Unlabored respirations. Good breath sounds bilaterally. No audible rales rhonchi or wheezing was noted. CARDIOVASCULAR: There is a regular rate and rhythm without any murmurs gallops or rubs. ABDOMEN: Soft and nontender with normal bowel sounds. No palpable organomegaly was noted. There is no palpable pulsatile mass. SKIN: Skin is clear with no lesions or rashes and otherwise unremarkable. NEUROLOGIC: Patient is alert and oriented x3. Cranial nerves II through XII are grossly intact. Motor and sensory are also intact. Normal speech, volume and content. Symmetrical smile. MUSCULOSKELETAL: Normal extremities with adequate strength and full range of motion. No lower extremity swelling or edema. No calf tenderness. PSYCHIATRIC: Normal psychiatric evaluation. Limitations: no limitations Course Vital Signs 10/21/18 10:03 Temperature 97.9 F Pulse Rate 96 Respiratory 16 Rate Blood Pressure 169/88 O2 Sat by Pulse 100 Oximetry Medical Decision Making - Medical Decision Making I will back into normal second time after medications were given and suggested a cardiac workup. Patient states she does not want any cardiac workup he had it one year ago. I indicated to him he may have changed in the year he stated he wanted any workup. After patient was able to eat some Jell-O he continued to complain about chest pain again recommended a cardiac workup and at that time he agreed to the cardiac workup. Patient is oriented in the ER almost 2 hours. EKG shows normal sinus rhythm at 80 bpm NV interval 258 QRSs 86 QT interval 378 QTC is 457. I went back into reevaluate the patient and after the Nitropaste was placed patient did feel some relief but it was intermittently coming back. I gave the patient heparin and talked to the [facility] hospitalist and they agreed to admit the patient admitted the patient I consult cardiology I wrote admitting orders I continued heparin and aspirin Nitropaste on the floor. - Lab Data Result diagrams: 10/21/18 11:48 10/21/18 11:48 Lab Results 0510/21/18 10/21/18 Range/Units 11:48 11:48 11:48 WBC 14.4 H (3.8-10.6) k/uL RBC 5.02 (4.30-5.90) m/uL Hgb 14.4 (13.0-17.5) gm/dL Hct 42.3 (39.0-53.0) % MCV 84.2 (80.0-100.0) fL MCH 28.6 (25.0-35.0) pg MCHC 34.0 (31.0-37.0) g/dL RDW 13.7 (11.5-15.5) % Plt Count 216 (150-450) k/uL Neutrophils % 86 % Lymphocytes % 7 % Monocytes % 4 % Eosinophils % 1 % Basophils % 0 % Neutrophils # 12.3 H (1.3-7.7) k/uL Lymphocytes # 1.1 (1.0-4.8) k/uL Monocytes # 0.6 (0-1.0) k/uL Eosinophils # 0.2 (0-0.7) k/uL Basophils # 0.1 (0-0.2) k/uL PT 10.6 (9.0-12.0) sec INR 1.0 (<1.2) APTT 22.6 (22.0-30.0) sec Sodium 136 L (137-145) mmol/L Potassium 4.4 (3.5-5.1) mmol/L Chloride 104 (98-107) mmol/L Carbon Dioxide 22 (22-30) mmol/L Anion Gap 10 mmol/L BUN 13 (9-20) mg/dL Creatinine 0.72 (0.66-1.25) mg/dL Est GFR (CKD-EPI)AfAm >90 (>60 ml/min/1.73 sqM) Est GFR (CKD-EPI)NonAf >90 (>60 ml/min/1.73 sqM) Glucose 298 H (74-99) mg/dL Calcium 9.7 (8.4-10.2) mg/dL Magnesium 1.9 (1.6-2.3) mg/dL Total Bilirubin 0.9 (0.2-1.3) mg/dL AST 29 (17-59) U/L ALT 34 (21-72) U/L Alkaline Phosphatase 108 (38-126) U/L Troponin I (0.000-0.034) ng/mL Total Protein 7.7 (6.3-8.2) g/dL Albumin 4.4 (3.5-5.0) g/dL 10/21/18 Range/Units 11:48 WBC (3.8-10.6) k/uL RBC (4.30-5.90) m/uL Hgb (13.0-17.5) gm/dL Hct (39.0-53.0) % MCV (80.0-100.0) fL MCH (25.0-35.0) pg MCHC (31.0-37.0) g/dL RDW (11.5-15.5) % Plt Count (150-450) k/uL Neutrophils % % Lymphocytes % % Monocytes % % Eosinophils % % Basophils % % Neutrophils # (1.3-7.7) k/uL Lymphocytes # (1.0-4.8) k/uL Monocytes # (0-1.0) k/uL Eosinophils # (0-0.7) k/uL Basophils # (0-0.2) k/uL PT (9.0-12.0) sec INR (<1.2) APTT (22.0-30.0) sec Sodium (137-145) mmol/L Potassium (3.5-5.1) mmol/L Chloride (98-107) mmol/L Carbon Dioxide (22-30) mmol/L Anion Gap mmol/L BUN (9-20) mg/dL Creatinine (0.66-1.25) mg/dL Est GFR (CKD-EPI)AfAm (>60 ml/min/1.73 sqM) Est GFR (CKD-EPI)NonAf (>60 ml/min/1.73 sqM) Glucose (74-99) mg/dL Calcium (8.4-10.2) mg/dL Magnesium (1.6-2.3) mg/dL Total Bilirubin (0.2-1.3) mg/dL AST (17-59) U/L ALT (21-72) U/L Alkaline Phosphatase (38-126) U/L Troponin I <0.012 (0.000-0.034) ng/mL Total Protein (6.3-8.2) g/dL Albumin (3.5-5.0) g/dL Critical Care Time Critical Care Time: Yes Total Critical Care Time: 35 Disposition Clinical Impression: Unstable angina pectoris Disposition: ADMITTED IP TO THIS HOSP Referrals: Lane Flores MD [Primary Care Provider] - 1-2 days Time of Disposition: 12:57
[2018-10-21] MEDS ORDERED: ASPIRIN 81 MG PO STA (11:33)
[2018-10-21] MEDS ORDERED: NITROGLYCERIN OINT 1 INCH/GM PACKET TOPICAL STA (11:33)
[2018-10-21 12:00] LABS: Basophils # (A) 0.1 k/uL (0-0.2); Basophils % (A) 0 %; Eosinophils # (A) 0.2 k/uL (0-0.7); Eosinophils % (A) 1 %; HCT 42.3 % (39.0-53.0); HGB 14.4 gm/dL (13.0-17.5); Lymphocytes # (A) 1.1 k/uL (1.0-4.8); Lymphocytes % (A) 7 %; MCH 28.6 pg (25.0-35.0); MCV 84.2 fL (80.0-100.0); Monocytes # (A) 0.6 k/uL (0-1.0); Monocytes % (A) 4 %; Neutrophils # (A) 12.3 k/uL (1.3-7.7); Neutrophils % (A) 86 %; Platelet Count 216 k/uL (150-450); RBC 5.02 m/uL (4.30-5.90); RDW 13.7 % (11.5-15.5); WBC 14.4 k/uL (3.8-10.6)
[2018-10-21] MEDS ORDERED: MAG HYDROX/AL HYDROX/SIMETH 30 ML, HYOSCYAMINE ELIXIR 10 ML, CIMETIDINE HCL 300 MG, LID... PO STA ×4 (12:06)
[2018-10-21 12:08] LABS: Partial Thromboplastin Time 22.6 sec (22.0-30.0); Prothrombin Time 10.6 sec (9.0-12.0)
--- NOTE | 2018-10-21 12:20 | XR ---
EXAMINATION TYPE: XR chest 2V DATE OF EXAM: 10/21/2018 COMPARISON: 10/14/2017 HISTORY: Shortness of breath TECHNIQUE: Frontal and lateral views of the chest are obtained. FINDINGS: Scattered senescent parenchymal changes noted. Hyperinflation compatible with COPD. No evidence for infiltrate. No evidence for atelectasis. Heart size is stable. Mediastinal structures are stable and grossly unremarkable. No evidence for hilar prominence. Degenerative changes dorsal spine. IMPRESSION: 1. No evidence for acute pulmonary disease.
[2018-10-21 12:26] LABS: ALT 34 U/L (21-72); AST 29 U/L (17-59); Albumin 4.4 g/dL (3.5-5.0); Alkaline Phosphatase 108 U/L (38-126); Anion Gap 10 mmol/L; Blood Urea Nitrogen 13 mg/dL (9-20); Calcium 9.7 mg/dL (8.4-10.2); Carbon Dioxide 22 mmol/L (22-30); Chloride 104 mmol/L (98-107); Glucose 298 mg/dL (74-99); Magnesium 1.9 mg/dL (1.6-2.3); Potassium 4.4 mmol/L (3.5-5.1); Sodium 136 mmol/L (137-145); Total Bilirubin 0.9 mg/dL (0.2-1.3); Total Protein 7.7 g/dL (6.3-8.2)
[2018-10-21] MEDS ORDERED: HEPARIN SODIUM,PORCINE 5,000 UNIT/ML 1 ML VIAL IV ONE (12:57)
[2018-10-21] MEDS ORDERED: NITROGLYCERIN SL TABS 0.4 MG TAB SUBLINGUAL PRN (12:58)
[2018-10-21] MEDS ORDERED: HEPARIN SOD,PORK IN 0.45% NACL 25,000 UNIT in 0.45% NACL 1 250ML.BAG IV SCH (13:00)
[2018-10-21 14:22] VITALS: BMI 32.3
[2018-10-21] MEDS ORDERED: TEMAZEPAM 15 MG CAP PO PRN (16:15)
[2018-10-21] MEDS ORDERED: ALPRAZolam 0.25 MG TAB PO PRN (16:15)
[2018-10-21] MEDS ORDERED: HYDROcodone/APAP 5-325MG 1 EACH TAB PO PRN (16:15)
[2018-10-21 16:38] LABS: Glucose,Whole Blood 187 mg/dL (75-99)
[2018-10-21] MEDS: NITROGLYCERIN OINT 1 INCH/GM PACKET TOPICAL SCH (18:11)
[2018-10-21] MEDS: INSULIN ASPART (NovoLOG) 100 UNIT/ML VIAL SQ SCH ×2 (18:11→20:34)
--- NOTE | 2018-10-21 19:46 | HP ---
HISTORY AND PHYSICAL CHIEF COMPLAINT: Chest pain. HISTORY OF PRESENT ILLNESS: This 48-year-old gentleman with past medical history of asthma, diabetes mellitus, GERD, hyperlipidemia, history of cholecystectomy, bowel resection, being followed by Dr. Flores in the outpatient setting, apparently was eating a tuna sandwich. Patient reports that the tuna sandwich got stuck in the lower part of the chest, and the patient was throwing up, vomiting multiple times. The patient subsequently had sharp chest pain in the anterior part of the chest which was recurrent in nature and was mild to moderate in intensity. It was radiating upwards. The patient came to [facility] and was admitted for further evaluation and treatment. Troponins were negative. EKG and chest x-ray were also within normal limits. Cardiology evaluation is in progress. There is no history of any fever, rigor or chills. No history of headache, loss of consciousness, seizures at this time. No palpitations. PAST MEDICAL HISTORY: 1. Asthma. 2. Diabetes mellitus. 3. GERD. 4. Hyperlipidemia. 5. History of cholecystectomy. 6. Bowel resection. HOME MEDICATIONS: 1. Glucophage XR 500 mg p.o. daily. 2. Singulair 10 mg at bedtime. 3. Tradjenta 5 mg p.o. daily. 4. Lipitor 10 mg at bedtime. ALLERGIES: NONE. FAMILY HISTORY: History of diabetes mellitus and brain tumor. SOCIAL HISTORY: Occasional alcohol. Previous history of smoking. REVIEW OF SYSTEMS: ENT: No diminished hearing. No diminished vision. CARDIOVASCULAR SYSTEM: As mentioned earlier. RESPIRATORY SYSTEM: As mentioned earlier. GI: As mentioned earlier. : No dysuria or retention. NERVOUS SYSTEM: No numbness, weakness. ALLERGY/IMMUNOLOGY: No asthma, hayfever. MUSCULOSKELETAL: As mentioned earlier. HEMATOLOGY/ONCOLOGY: No history of anemia. ENDOCRINE: Diabetes mellitus. CONSTITUTIONAL: As mentioned earlier. DERMATOLOGY: Negative. RHEUMATOLOGY: Negative. PSYCHIATRY: As mentioned earlier. PHYSICAL EXAMINATION: Patient is alert and oriented x3. The pulse is 105, blood pressure 152/86, respiration 18, temperature 98.1, pulse ox 96% on room air. HEENT: Conjunctivae normal. NECK: No jugular venous distention. CARDIOVASCULAR SYSTEM: S1, S2 muffled. RESPIRATORY SYSTEM: Breath sounds diminished at the bases. No rhonchi. No crackles. ABDOMEN: Soft, obese, non-tender. No mass palpable. No guarding or rigidity. Bowel sounds present. LEGS: No edema. No swelling. NERVOUS SYSTEM: Higher functions as mentioned earlier. Moves all 4 limbs. No focal motor or sensory deficit. LYMPHATICS: No lymph node palpable in neck, axillae or groin. JOINTS: No active deforming arthropathy. SKIN: No ulcer, rash, bleeding. LABS: WBC 14.4. Sodium 136, glucose 298. Troponins are negative. EKG and chest x-ray reviewed. ASSESSMENT: 1. Chest pain; possibly gastroesophageal reflux disease. 2. Dysphagia. 3. Rule out coronary artery disease. 4. Diabetes mellitus, type 2. 5. Hyponatremia. 6. Increased white count. 7. Obesity with body mass index 32.3. 8. History of intermittent asthma. 9. Hyperlipidemia. 10.History of peripheral neuropathy. 11.History of gout. 12.History of nephrolithiasis. 13.History of bowel resection. 14.History of cholecystectomy. 15.Remote history of nicotine dependence. RECOMMENDATIONS AND DISCUSSION: In this 48-year-old gentleman who presented with multiple complex medical issues, we will monitor the patient closely, continue the current management, continue symptomatic treatment. Rule out myocardial infarction. Proton pump inhibitors. I would also recommend cardiology and gastroenterology evaluations. The patient might require endoscopies or stress test to complete the workup, but will continue to monitor. Overall prognosis guarded. Further recommendations to follow. Discussed with the patient. A copy of this dictation is being forwarded to Dr. Flores, who is the primary physician. MMHIPOLITOL / EVELINN: [id number] /
[2018-10-21] MEDS: PANTOPRAZOLE 40 MG/10 ML VIAL IVP SCH (20:14)
[2018-10-21 20:28] LABS: Glucose,Whole Blood 192 mg/dL (75-99)
[2018-10-21] MEDS ORDERED: ATORVASTATIN 10 MG TAB PO SCH (21:00)
[2018-10-21] MEDS ORDERED: MONTELUKAST 10 MG TAB PO SCH (21:00)
[2018-10-22] MEDS: NITROGLYCERIN OINT 1 INCH/GM PACKET TOPICAL SCH ×2 (00:07→05:36)
[2018-10-22] MEDS ORDERED: HEPARIN SODIUM,PORCINE 5,000 UNIT/ML 1 ML VIAL IV PRN (03:18)
[2018-10-22 07:01] LABS: Glucose,Whole Blood 189 mg/dL (75-99)
[2018-10-22 07:28] VITALS: PULSE 97; RESP 18
[2018-10-22] MEDS ORDERED: PANTOPRAZOLE 40 MG TABLET PO SCH (07:30)
[2018-10-22] MEDS: INSULIN ASPART (NovoLOG) 100 UNIT/ML VIAL SQ SCH (08:31)
[2018-10-22 08:58] LABS: Basophils # (A) 0.1 k/uL (0-0.2); Basophils % (A) 0 %; Eosinophils # (A) 0.1 k/uL (0-0.7); Eosinophils % (A) 1 %; HCT 41.7 % (39.0-53.0); Lymphocytes % (A) 17 %; MCHC 33.6 g/dL (31.0-37.0); MCV 83.3 fL (80.0-100.0); Mean Platelet Volume 7.3; Monocytes # (A) 0.7 k/uL (0-1.0); Monocytes % (A) 6 %; Neutrophils # (A) 8.7 k/uL (1.3-7.7); Neutrophils % (A) 75 %; Platelet Count 199 k/uL (150-450); RBC 5.01 m/uL (4.30-5.90); RDW 14.4 % (11.5-15.5); WBC 11.6 k/uL (3.8-10.6)
[2018-10-22] MEDS ORDERED: LOSARTAN 50 MG TAB PO SCH (09:00)
[2018-10-22] MEDS ORDERED: metFORMIN 500 MG TAB PO SCH (09:00)
[2018-10-22] MEDS ORDERED: ASPIRIN 81 MG PO SCH (09:00)
[2018-10-22] MEDS ORDERED: ASPIRIN 325 MG TAB PO SCH (09:00)
[2018-10-22] MEDS ORDERED: LOSARTAN 25 MG TAB PO SCH (09:00)
[2018-10-22] MEDS ORDERED: LINAGLIPTIN 5 MG TABLET PO SCH (09:00)
[2018-10-22 09:12] LABS: Anion Gap 10 mmol/L; Blood Urea Nitrogen 12 mg/dL (9-20); Calcium 9.1 mg/dL (8.4-10.2); Carbon Dioxide 23 mmol/L (22-30); Chloride 103 mmol/L (98-107); Cholesterol 135 mg/dL (<200); Glucose 185 mg/dL (74-99); HDL Cholesterol 41 mg/dL (40-60); LDL Cholesterol,Calculated 75 mg/dL (0-99); Potassium 4.2 mmol/L (3.5-5.1); Sodium 136 mmol/L (137-145); Triglycerides 97 mg/dL (<150)
--- NOTE | 2018-10-22 09:42 | P.CRDCN ---
History of Present Illness History of present illness: This is a pleasant 48-year-old male past medical history significant for diabetes mellitus, dyslipidemia, gastroesophageal reflux disease, asthma and obesity. 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 We have been asked to see him in consultation secondary to chest discomfort. He states yesterday he was eating some tuna casserole and started choking. His airway was not compromised however he could feel a lump of food in the epigastric region. He states he was coughing, retching and ultimately vomited a couple of times over the course of an hour before he felt as though the fluid had cleared. During the course of all this he had a pressure sensation in the epigastric region that was reproducible when he pressed in the epigastric region. There is no radiation to the back, arm, neck or jaw. There was no precordial chest pain. He denies associated shortness of breath, dizziness, nausea or palpitations. He states he still feels mild discomfort in the epigastric region that is slowly subsiding and improving over time. No specific alleviating factor he just feels as though the irritation of choking on the food is starting to improve. He is seen and examined resting comfortably in bed in no acute distress. EKG reveals sinus mechanism with no acute ST or T wave abnormalities noted. Chest x-ray is negative for an acute cardiopulmonary process. Laboratory data reviewed, WBC 14.4, cardiac enzymes negative 3, electrolytes normal. Current cardiac medications include atorvastatin 10 mg daily. At the time of my exam: CONSTITUTIONAL: Denies fever. Denies chills. EYES: Denies blurred vision. Denies vision changes. Denies eye pain. EARS, NOSE, MOUTH & THROAT: Denies headache. Denies sore throat. Denies ear pain. CARDIOVASCULAR: Denies chest pain. Denies shortness of breath. Denies orthopnea. Denies PND. Denies palpitations. RESPIRATORY: Denies cough. GASTROINTESTINAL: Denies abdominal pain. Denies diarrhea. Denies constipation. Denies nausea. Denies vomiting. MUSCULOSKELETAL: Denies myalgias. INTEGUMENTARY: Denies pruitis. Denies rash. NEUROLOGIC: Denies numbness. Denies tingling. Denies weakness. PSYCHIATRIC: Denies anxiety. Denies depression. ENDOCRINE: Denies fatigue. Denies weight change. Denies polydipsia. Denies polyurina. GENITOURINARY: Denies burning, hematuria or urgency with micturation. HEMATOLOGIC: Denies history of anemia. Denies bleeding. Blood pressure 152/91 heart rate 97 afebrile maintaining oxygen saturation on room air GENERAL: This is a 48-year-old male in no apparent distress at the time of my examination. Obese. HEENT: Head is atraumatic, normocephalic. Pupils are equal, round. Sclerae anicteric. Conjunctivae are clear. Mucous membranes of the mouth are moist. Neck is supple. There is no jugular venous distention. No carotid bruit is heard. LUNGS: Clear to auscultation no wheezes, rales or rhonchi. No chest wall tenderness is noted on palpation or with deep breathing. HEART: Regular rate and rhythm without murmurs, rubs or gallops. S1 and S2 heard. ABDOMEN: Soft, nontender. Bowel sounds are heard. No organomegaly noted. EXTREMITIES: No evidence of peripheral edema and no calf tenderness noted. VASCULAR: Radial and dorsalis pedis pulses palpated, no evidence of clubbing. NEUROLOGIC: Patient is awake, alert and oriented x3. ASSESSMENT Epigastric discomfort in the setting of choking on food Diabetes mellitus Dyslipidemia Hypertension, not previously diagnosed History of asthma Gastroesophageal reflux disease with hiatal hernia Obesity, BMI 32 PLAN An acute coronary event has been ruled out. Discontinue heparin infusion. Symptoms are very atypical for angina and seemed to be related to choking. Initiate on losartan 50 mg daily for optimal blood pressure control and a diabetic patient. Advised the patient to get up increased activity around the halls with brisk walking and assess for chest discomfort. Overall stable from a cardiac perspective for discharge home. Follow-up in the office with Dr. Ly in 2 weeks for ongoing blood pressure management and outpatient stress testing is warranted. Thank you kindly for this consultation. Nurse Practitioner note has been reviewed, I agree with a documented findings and plan of care. Patient was seen and examined. Past Medical History Past Medical History: Asthma, Diabetes Mellitus, GERD/Reflux, Hyperlipidemia Additional Past Medical History / Comment(s): NIDDM type II, neuropathy bilateral feet, L foot pain/edema of L ankle since patellar fracture/surgery 06/2018, gastroparesis/gastritis/hiatal hernia/retained food, gout bilateral hands/feet, kidney stones-pt passed, ruptured divertiuclum with surgery. History of Any Multi-Drug Resistant Organisms: None Reported Past Surgical History: Appendectomy, Bowel Resection, Cholecystectomy, Orthop edic Surgery Additional Past Surgical History / Comment(s): COLOSTOMY AND REVERSAL, EGD, 06/23/18 ORIF L PATELLAR FRACTURE Past Anesthesia/Blood Transfusion Reactions: No Reported Reaction Past Psychological History: No Psychological Hx Reported Additional Psychological History / Comment(s): Pt resides with his 2 children. He works at [employer]. He is a [employer] Group[employer]. Smoking Status: Former smoker Past Alcohol Use History: Occasional Additional Past Alcohol Use History / Comment(s): STARTED SMOKING AT AGE 14 QUIT AT AGE 23 SMOKED 1/4 PPD OR LESS Past Drug Use History: None Reported - Past Family History Father Family Medical History: Diabetes Mellitus Mother Family Medical History: No Reported History, Diabetes Mellitus Additional Family Medical History / Comment(s): Brain tumor with surgery. Medications and Allergies Home Medications Medication Instructions Recorded Confirmed Type Linagliptin [Tradjenta] 5 mg PO DAILY #30 tab 08/07/17 10/21/18 Rx Montelukast Sodium [Singulair] 10 mg PO HS 10/14/17 10/21/18 History metFORMIN HCL ER [Glucophage Xr] 500 mg PO DAILY 10/14/17 10/21/18 History Atorvastatin [Lipitor] 10 mg PO HS 10/21/18 10/21/18 History Losartan [Cozaar] 50 mg PO DAILY #90 tab 10/22/18 Rx Allergies Allergy/AdvReac Type Severity Reaction Status Date / Time No Known Allergies Allergy Verified 10/21/18 10:05 Physical Exam Vitals: Vital Signs Temp Pulse Pulse Resp BP BP Pulse Ox 10/22/18 07:00 98.9 F 97 18 152/91 95 10/22/18 03:53 98.4 F 102 H 15 132/76 98 10/22/18 03:38 99 15 10/21/18 23:43 97.9 F 99 15 133/68 97 10/21/18 23:39 15 10/21/18 20:00 93 15 10/21/18 19:14 98.5 F 93 15 139/82 99 10/21/18 16:00 18 10/21/18 15:19 98.1 F 105 H 18 152/86 96 10/21/18 15:00 97.8 F 102 H 16 132/82 94 L 10/21/18 14:50 100 16 132/82 94 L 10/21/18 14:40 104 H 18 132/82 91 L 10/21/18 14:30 101 H 18 134/84 93 L 10/21/18 14:20 101 H 16 134/84 94 L 10/21/18 14:10 103 H 18 134/84 94 L 10/21/18 14:00 103 H 145/91 95 10/21/18 13:50 99 145/91 95 10/21/18 13:40 97 145/91 96 10/21/18 13:30 102 H 146/95 93 L 10/21/18 13:20 105 H 18 146/95 95 10/21/18 13:10 105 H 146/95 95 10/21/18 13:00 102 H 141/88 96 10/21/18 12:50 98 141/88 92 L 10/21/18 12:40 92 141/88 95 10/21/18 12:30 96 183/95 10/21/18 12:10 95 183/95 10/21/18 12:00 93 179/114 10/21/18 11:50 93 179/114 98 10/21/18 11:48 86 98 10/21/18 10:03 97.9 F 96 16 169/88 100 Intake and Output 10/21/18 10/22/18 10/22/18 22:59 06:59 14:59 Intake Total 768.514 344.033 Balance 768.514 344.033 Intake: Intake, IV Titration 68.514 94.033 Amount Heparin Sod,Pork in 0.45% 68.514 94.033 NaCl 25,000 unit In 0.45 % NaCl 1 250ml.bag @ 9.8 UNITS/KG/HR 10.002 mls/hr IV .Q24H [facility] Rx#: [id number] Oral 700 250 Other: Voiding Method Toilet Toilet # Voids 1 1 Results 10/22/18 08:37 10/22/18 08:37 Cardiac Enzymes 10/21/18 10/21/18 10/21/18 Range/Units 11:48 11:48 18:06 AST 29 (17-59) U/L Troponin I <0.012 <0.012 (0.000-0.034) ng/mL 10/21/18 Range/Units 23:25 AST (17-59) U/L Troponin I <0.012 (0.000-0.034) ng/mL Coagulation 10/21/18 10/21/18 10/22/18 Range/Units 11:48 19:02 01:38 PT 10.6 (9.0-12.0) sec APTT 22.6 24.6 28.8 (22.0-30.0) sec CBC 10/21/18 Range/Units 11:48 WBC 14.4 H (3.8-10.6) k/uL RBC 5.02 (4.30-5.90) m/uL Hgb 14.4 (13.0-17.5) gm/dL Hct 42.3 (39.0-53.0) % Plt Count 216 (150-450) k/uL Comprehensive Metabolic Panel 10/21/18 Range/Units 11:48 Sodium 136 L (137-145) mmol/L Potassium 4.4 (3.5-5.1) mmol/L Chloride 104 (98-107) mmol/L Carbon Dioxide 22 (22-30) mmol/L BUN 13 (9-20) mg/dL Creatinine 0.72 (0.66-1.25) mg/dL Glucose 298 H (74-99) mg/dL Calcium 9.7 (8.4-10.2) mg/dL AST 29 (17-59) U/L ALT 34 (21-72) U/L Alkaline Phosphatase 108 (38-126) U/L Total Protein 7.7 (6.3-8.2) g/dL Albumin 4.4 (3.5-5.0) g/dL Current Medications Generic Name Dose Route Start Last Admin Trade Name Freq PRN Reason Stop Dose Admin Hydrocodone Bitart/Acetaminophen 1 each 10/21/18 16:15 Hector 5-325 PO Q6HR PRN Pain Alprazolam 0.25 mg 10/21/18 16:15 Xanax PO TID PRN Anxiety Aspirin 325 mg 10/22/18 09:00 Aspirin PO DAILY [facility] Atorvastatin Calcium 10 mg 10/21/18 21:00 10/21/18 20:15 Lipitor PO 10 mg HS [facility] Administration Heparin Sodium (Porcine) 0 unit 10/22/18 03:18 10/22/18 03:30 Heparin IV 4,000 unit PER PROTOCOL PRN Administration Low PTT Protocol Heparin Sodium/Sodium Chloride 250 mls @ 10.002 mls/hr 10/21/18 13:00 10/22/18 03:30 25,000 unit/ Sodium Chloride IV 15.68 units/kg/hr .Q24H [facility] 16 mls/hr Titration Protocol 9.8 UNITS/KG/HR Insulin Aspart 0 unit 10/21/18 17:30 10/21/18 20:34 Novolog SQ 3 unit ACHS [facility] Administration Protocol Linagliptin 5 mg 10/22/18 09:00 Tradjenta PO DAILY [facility] Metformin HCl 250 mg 10/22/18 09:00 Glucophage PO BID [facility] Montelukast Sodium 10 mg 10/21/18 21:00 10/21/18 20:15 Singulair PO 10 mg HS [facility] Administration Nitroglycerin 1 inch 10/21/18 18:00 10/22/18 05:36 Nitro-Bid Oint TOPICAL Not Given Q6HR [facility] Nitroglycerin 0.4 mg 10/21/18 12:58 Nitrostat SUBLINGUAL Q5M PRN Chest Pain Pantoprazole Sodium 40 mg 10/21/18 18:45 10/21/18 20:14 Protonix IVP 40 mg DAILY [facility] Administration Temazepam 15 mg 10/21/18 16:15 Restoril PO HS PRN Insomnia Intake and Output 10/21/18 10/22/18 10/22/18 22:59 06:59 14:59 Intake Total 768.514 344.033 Balance 768.514 344.033 Intake: Intake, IV Titration 68.514 94.033 Amount Heparin Sod,Pork in 0.45% 68.514 94.033 NaCl 25,000 unit In 0.45 % NaCl 1 250ml.bag @ 9.8 UNITS/KG/HR 10.002 mls/hr IV .Q24H [facility] Rx#: [id number] Oral 700 250 Other: Voiding Method Toilet Toilet # Voids 1 1 10/21/18 11:48 10/21/18 11:48
[2018-10-22] MEDS: PANTOPRAZOLE 40 MG/10 ML VIAL IVP SCH (09:59)
--- NOTE | 2018-10-22 10:06 | P.CONS ---
History of Present Illness - Reason for Consult Consult date: 10/22/18 GERD Requesting physician: Clive Finch - Chief Complaint Nausea vomiting dysphagia chest pain - History of Present Illness 48-year-old gentleman admitted with intractable nausea vomiting chest pain after eating a tuna fish sandwich. Consult requested for GERD. Patient states he is a tuna fish sandwich she got stuck in the lower part of esophagus which induce multiple episodes of emesis. Denies fever chills hematemesis hematochezia melena. Past medical history of di abetes GERD gastroparesis hyperlipidemia asthma cholecystectomy bowel resection for perforated diverticulitis. EGD November 2017 w/ Dr. Winchester; no strictures features of gastroparesis retained food product. No maintenance medications for GERD. Chest x-ray no acute pulmonary disease. White count 14.4. Hemoglobin 14.4. Platelet 216. INR 1.0. Troponin 3 less than 0.012. LFTs within normal l imits. Review of Systems Constitutional: Denies fever, chills, sweats, weight gain, or loss. HEENT: Negative for migraines, blurred vision or loss, earaches, drainage, tinnitus, oral mucosal lesions, dysphagia, or odynophagia. Cardiac: Admitted with chest pain, denies arrhythmias, or palpitation. Respiratory: Negative for shortness of breath, hemoptysis, cough, or sputum production. Gastrointestinal: See HPI for pertinent findings. Genitourinary: Negative for hematuria, urgency, frequency, polyuria, dysuria, or penile discharge. Musculoskeletal: Negative for muscle aches, swelling, arthritis, and arthralgias. Neurologic: Negative for stroke or TIA. Endocrine: Negative for thyroid problems. Skin: Negative for rash or itching. Psychiatric: Negative history for depression and anxiety Past Medical History Past Medical History: Asthma, Diabetes Mellitus, GERD/Reflux, Hyperlipidemia Additional Past Medical History / Comment(s): NIDDM type II, neuropathy bilateral feet, L foot pain/edema of L ankle since patellar fracture/surgery 06/2018, gastroparesis/gastritis/hiatal hernia/retained food, gout bilateral hands/feet, kidney stones-pt passed, ruptured divertiuclum with surgery. History of Any Multi-Drug Resistant Organisms: None Reported Past Surgical History: Appendectomy, Bowel Resection, Cholecystectomy, Orthopedic Surgery Additional Past Surgical History / Comment(s): COLOSTOMY AND REVERSAL, EGD, 06/23/18 ORIF L PATELLAR FRACTURE Past Anesthesia/Blood Transfusion Reactions: No Reported Reaction Past Psychological History: No Psychological Hx Reported Additional Psychological History / Comment(s): Pt resides with his 2 children. He works at [employer]. 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 Smoking Status: Former smoker Past Alcohol Use History: Occasional Additional Past Alcohol Use History / Comment(s): STARTED SMOKING AT AGE 14 QUIT AT AGE 23 SMOKED 1/4 PPD OR LESS Past Drug Use History: None Reported - Past Family History Father Family Medical History: Diabetes Mellitus Mother Family Medical History: No Reported History, Diabetes Mellitus Additional Family Medical History / Comment(s): Brain tumor with surgery. Medications and Allergies Home Medications Medication Instructions Recorded Confirmed Type Linagliptin [Tradjenta] 5 mg PO DAILY #30 tab 08/07/17 10/21/18 Rx Montelukast Sodium [Singulair] 10 mg PO HS 10/14/17 10/21/18 History metFORMIN HCL ER [Glucophage Xr] 500 mg PO DAILY 10/14/17 10/21/18 History Atorvastatin [Lipitor] 10 mg PO HS 10/21/18 10/21/18 History Losartan [Cozaar] 50 mg PO DAILY #90 tab 10/22/18 Rx Allergies Allergy/AdvReac Type Severity Reaction Status Date / Time No Known Allergies Allergy Verified 10/21/18 10:05 Physical Exam Vitals: Vital Signs Temp Pulse Pulse Resp BP BP Pulse Ox 10/22/18 07:00 98.9 F 97 18 152/91 95 10/22/18 03:53 98.4 F 102 H 15 132/76 98 10/22/18 03:38 99 15 10/21/18 23:43 97.9 F 99 15 133/68 97 10/21/18 23:39 15 10/21/18 20:00 93 15 10/21/18 19:14 98.5 F 93 15 139/82 99 10/21/18 16:00 18 10/21/18 15:19 98.1 F 105 H 18 152/86 96 10/21/18 15:00 97.8 F 102 H 16 132/82 94 L 10/21/18 14:50 100 16 132/82 94 L 10/21/18 14:40 104 H 18 132/82 91 L 10/21/18 14:30 101 H 18 134/84 93 L 10/21/18 14:20 101 H 16 134/84 94 L 10/21/18 14:10 103 H 18 134/84 94 L 10/21/18 14:00 103 H 145/91 95 10/21/18 13:50 99 145/91 95 10/21/18 13:40 97 145/91 96 10/21/18 13:30 102 H 146/95 93 L 10/21/18 13:20 105 H 18 146/95 95 10/21/18 13:10 105 H 146/95 95 10/21/18 13:00 102 H 141/88 96 10/21/18 12:50 98 141/88 92 L 10/21/18 12:40 92 141/88 95 10/21/18 12:30 96 183/95 10/21/18 12:10 95 183/95 10/21/18 12:00 93 179/114 10/21/18 11:50 93 179/114 98 10/21/18 11:48 86 98 10/21/18 10:03 97.9 F 96 16 169/88 100 Intake and Output 10/21/18 10/22/18 10/22/18 22:59 06:59 14:59 Intake Total 768.514 344.033 Balance 768.514 344.033 Intake: Intake, IV Titration 68.514 94.033 Amount Heparin Sod,Pork in 0.45% 68.514 94.033 NaCl 25,000 unit In 0.45 % NaCl 1 250ml.bag @ 9.8 UNITS/KG/HR 10.002 mls/hr IV .Q24H [facility] Rx#: [id number] Oral 700 250 Other: Voiding Method Toilet Toilet Toilet # Voids 1 1 General appearance: The patient is alert, oriented, in no acute distress. HET: Head is normocephalic and atraumatic. Pupils are equal and reactive. Oropharynx is clear without lesions. Neck: Supple without lymphadenopathy. Trachea midline. Heart: S1 S2. Regular rate and rhythm. Lungs: No crackles or wheezes are heard. Abdomen: Soft, nontender, nondistended with bowel sounds. No peritoneal signs. No palpable organomegaly or masses. Extremities: Normal skin color and turgor. No cyanosis, rash, ulceration, clubbing, or edema. Radial and pedal pulses are 2/4 bilaterally. Neurological: No focal deficits. Strength and sensation are grossly intact. Results CBC & Chem 7: 10/22/18 08:37 10/22/18 08:37 Labs: Abnormal Lab Results - Last 24 Hours (Table) 10/21/18 10/21/18 10/21/18 Range/Units 11:48 11:48 16:33 WBC 14.4 H (3.8-10.6) k/uL Neutrophils # 12.3 H (1.3-7.7) k/uL Sodium 136 L (137-145) mmol/L Glucose 298 H (74-99) mg/dL POC Glucose (mg/dL) 187 H (75-99) mg/dL 10/21/18 10/22/18 Range/Units 20:26 06:38 WBC (3.8-10.6) k/uL Neutrophils # (1.3-7.7) k/uL Sodium (137-145) mmol/L Glucose (74-99) mg/dL POC Glucose (mg/dL) 192 H 189 H (75-99) mg/dL Chest x-ray: report reviewed (Dr. Raya) Assessment and Plan (1) Dysphagia Narrative/Plan: 48 y/o male admitted with acute dysphagia chest pain after eating a tuna fish sandwich with underlying GERD and gastroparesis s/p EGD November 2017. Presently feels well and requesting diet advancement. Underlying stricture disease cannot be excluded. Current Visit: Yes Status: Acute Code(s): R13.10 - DYSPHAGIA, UNSPECIFIED SNOMED Code(s): 20769180 (2) Gastroparesis Current Visit: Yes Status: Acute Code(s): K31.84 - GASTROPARESIS SNOMED Code(s): 282922042 Plan: 1. EGD offered patient declined; will advance diet if tolerated may be DC. RTO 3-4 for reevaluation. Protonix 40 mg daily. Avoid thick breads meats; education provided with chewing foods slowly and cutting larger pieces of food into smaller pieces. Thank you for this kind referral and the opportunity to participate in the care of your patient. This consultation was discussed with Dr. Raya. The impression and plan of care have been directed as dictated.
[2018-10-22 11:23] VITALS: BP 134/86; TEMP 98.6
[2018-10-22 11:35] LABS: Glucose,Whole Blood 192 mg/dL (75-99)
--- NOTE | 2018-10-22 14:45 | P.DS ---
Providers Date of admission: 10/21/18 12:59 Attending physician: Clive Finch Consults: 10/21/18 12:58 Consult Physician Urgent Consulting Provider: [facility] Consult Reason/Comments: Unstable angina Do you want consulting provider notified?: Yes 10/21/18 18:37 Consult Physician Routine Consulting Provider: Rober Raya Reason/Comments: GERD?? Do you want consulting provider notified?: Yes Primary care physician: Sandra Carney [facility] Course: 48-year-old admitted for chest pain after eating a tuna fish sandwich which resulted in gastroesophageal reflux disease in the apparently this fish sandwich that stuck in the lower part of these fingers. Patient is able to tolerate diet without any upper GI endoscopy because of which have gastroneurology is not planning and Epogen endoscopy although patient underwent workup for acute coronary syndromes and had a stress test as those are negative. Patient followed gastro-oncology as an outpatient and if needed will undergo upper GI endoscopy as an outpatient patient had an EGD in 2018 at that time there were no strictures but there was some retained food which was believed secondary to gastroparesis. PHYSICAL EXAMINATION: GENERAL: The patient is alert and oriented x3, not in any acute distress. Well developed, well nourished. HEENT: Pupils are round and equally reacting to light. EOMI. No scleral icterus. No conjunctival pallor. Normocephalic, atraumatic. No pharyngeal erythema. No thyromegaly. CARDIOVASCULAR: S1 and S2 present. No murmurs, rubs, or gallops. PULMONARY: Chest is clear to auscultation, no wheezing or crackles. ABDOMEN: Soft, nontender, nondistended, normoactive bowel sounds. No palpable organomegaly. MUSCULOSKELETAL: No joint swelling or deformity. EXTREMITIES: No cyanosis, clubbing, or pedal edema. NEUROLOGICAL: Gross neurological examination did not reveal any focal deficits. SKIN: No rashes. For other chronic medical issues as position course please refer to dictation of H&P from Dr. Finch from yesterday Plan - Discharge Summary Discharge Rx Participant: No New Discharge Prescriptions: New Losartan [Cozaar] 50 mg PO DAILY #90 tab Pantoprazole [Protonix] 40 mg PO DAILY #[address] tablet.[address] Andres Action Linagliptin [Tradjenta] 5 mg PO DAILY #30 tab metFORMIN HCL ER [Glucophage Xr] 500 mg PO DAILY Montelukast Sodium [Singulair] 10 mg PO HS Atorvastatin [Lipitor] 10 mg PO HS Discharge Medication List Linagliptin [Tradjenta] 5 mg PO DAILY #30 tab 08/07/17 [Rx] Montelukast Sodium [Singulair] 10 mg PO HS 10/14/17 [History] metFORMIN HCL ER [Glucophage Xr] 500 mg PO DAILY 10/14/17 [History] Atorvastatin [Lipitor] 10 mg PO HS 10/21/18 [History] Losartan [Cozaar] 50 mg PO DAILY #90 tab 10/22/18 [Rx] Pantoprazole [Protonix] 40 mg PO DAILY #30 tablet. 10/22/18 [Rx] Follow up Appointment(s)/Referral(s): Francisco Javier Ly MD [STAFF PHYSICIAN] - 11/11/18 9:00 am (Outpatient stress test) Lane Flores MD [Primary Care Provider] - 1-2 days Rober Raya MD [STAFF PHYSICIAN] - 12/04/18 8:30 am (Friday appointment request) Patient Instructions/Handouts: Chest Pain (DC), Gastroesophageal Reflux Disease (DC) Discharge Disposition: HOME SELF-CARE
[2018-10-22 18:24] LABS: Hemoglobin A1C 7.2 % (4.0-6.0)
== END 2018-10-22 12:55 | disposition home or self-care (01) ==
LOC: EC 09:53 → 1SOBS 12:59
PROVIDERS: ADMIT Hospitalist; ATTEND Hospitalist
DX: R07.89 Other chest pain (principal); K21.9 Gastro-esophageal reflux disease without esophagitis; T18.128A Food in esophagus causing other injury, initial encounter; R13.10 Dysphagia, unspecified; K31.84 Gastroparesis; E87.1 Hypo-osmolality and hyponatremia; I10 Essential (primary) hypertension; E11.43 Type 2 diabetes mellitus with diabetic autonomic (poly)neuropathy; J45.20 Mild intermittent asthma, uncomplicated; E78.5 Hyperlipidemia, unspecified; M10.9 Gout, unspecified; K64.9 Unspecified hemorrhoids; E66.9 Obesity, unspecified; Z68.32 Body mass index [BMI] 32.0-32.9, adult; E11.42 Type 2 diabetes mellitus with diabetic polyneuropathy; K44.9 Diaphragmatic hernia without obstruction or gangrene; Z79.84 Long term (current) use of oral hypoglycemic drugs; Z79.899 Other long term (current) drug therapy; Z87.442 Personal history of urinary calculi; Z90.49 Acquired absence of other specified parts of digestive tract; Z87.19 Personal history of other diseases of the digestive system; Z87.891 Personal history of nicotine dependence; Z83.3 Family history of diabetes mellitus; Z84.89 Family history of other specified conditions
CPT/HCPCS: 96366 ×3; 96375 ×2; 96376 ×2; 96365; 99291; 36415; 93005; 80061; 80053; 80048; 83735; 84484; 85025 ×2; 85610; 85730 ×2; 83036; 71046; G0378 ×2; J1610; J1644 ×3; J2765; J3360; C9113 ×2

== ENCOUNTER 2020-12-26 16:15 | Emergency (ER) | payer OTHER ==
[2020-12-26 16:43] VITALS: BP 165/99; PULSE 92; RESP 18; TEMP 98.2
[2020-12-26] MEDS ORDERED: KETOROLAC 15 MG/ML 1 ML VIAL IM STA (17:06)
--- NOTE | 2020-12-26 17:35 | XR ---
Result: History: Pain status post fall. Comparison: None available. Technique: Frontal, lateral and oblique views of the right elbow. Findings: Bone mineralization is appropriate for age. No acute fracture or dislocation is seen. The visualized osseous structures are in anatomic alignmen t. The joint spaces are preserved. There is no significant elbow joint effusion. Impression: No acute fracture or dislocation.
--- NOTE | 2020-12-26 17:38 | XR ---
Result: History: Pain. Comparison: None available. Technique: 4 views of the right wrist. Findings: No acute displaced fracture or dislocation is seen. The visualized osseous structures are in anatomi c alignment. The joint spaces are preserved. Impression: No displaced fracture.
--- NOTE | 2020-12-26 17:46 | ED ---
General Adult HPI - General Chief complaint: Extremity Injury, Upper Stated complaint: [facility]HS/Rt Arm Injury Time Seen by Provider: 12/26/20 16:47 Source: patient Mode of arrival: ambulatory Limitations: no limitations - History of Present Illness Initial comments: 50-year-old male presents to the emergency room for a chief complaint of right elbow and wrist pain. Patient reports that he was at work and he tripped over a dog leash and fell onto the right wrist and forearm. Patient states it does not hurt to press on but hurts to move his wrist and elbow. Patient is not think anything is broken. He did not hit his head. He does not take blood thinners. He denies any other injuries.Patient has no other complaints at this time including shortness of breath, chest pain, abdominal pain, nausea or vomiting, headache, or visual changes. - Related Data Home Medications Medication Instructions Recorded Confirmed Montelukast Sodium [Singulair] 10 mg PO HS 10/14/17 01/11/19 metFORMIN HCL ER [Glucophage Xr] 500 mg PO DAILY 10/14/17 01/11/19 Atorvastatin [Lipitor] 10 mg PO HS 10/21/18 01/11/19 Previous Rx's Medication Instructions Recorded Linagliptin [Tradjenta] 5 mg PO DAILY #30 tab 08/07/17 Losartan [Cozaar] 50 mg PO DAILY #90 tab 10/22/18 Pantoprazole [Protonix] 40 mg PO DAILY #30 tablet. 10/22/18 Allergies Allergy/AdvReac Type Severity Reaction Status Date / Time No Known Allergies Allergy Verified 01/11/19 17:00 Review of Systems ROS Statement: Those systems with pertinent positive or pertinent negative responses have been documented in the HPI. ROS Other: All systems not noted in ROS Statement are negative. Past Medical History Past Medical History: Asthma, Diabetes Mellitus, GERD/Reflux, Hyperlipidemia Additional Past Medical History / Comment(s): NIDDM type II, neuropathy bilateral feet, L foot pain/edema of L ankle since patellar fracture/surgery 06/2018, gastroparesis/gastritis/hiatal hernia/retained food, gout bilateral hands/feet, kidney stones-pt passed, ruptured divertiuclum with surgery. History of Any Multi-Drug Resistant Organisms: None Reported Past Surgical History: Appendectomy, Bowel Resection, Cholecystectomy, Orthopedic Surgery Additional Past Surgical History / Comment(s): COLOSTOMY AND REVERSAL 1999-07 EST, EGD, 06/23/18 ORIF L PATELLAR FRACTURE Past Anesthesia/Blood Transfusion Reactions: No Reported Reaction Past Psychological History: No Psychological Hx Reported Smoking Status: Never smoker Past Alcohol Use History: Occasional Past Drug Use History: None Reported - Past Family History Father Family Medical History: Diabetes Mellitus Mother Family Medical History: Diabetes Mellitus Additional Family Medical History / Comment(s): Brain tumor with surgery. General Exam - General Exam Comments Initial Comments: Right upper extremity: No tenderness in the right wrist or hand. No scaphoid tenderness. Patient does have some mild pain with flexion and extension of the right wrist however full range of motion. No ecchymosis or edema. Patient has full range motion of the right elbow however full flexion and extension does elicit some pain. No tenderness. No ecchymosis or edema. No external signs of trauma. Capillary refill is less than 2 seconds, radial pulses 2+ right upper extremity. Limitations: no limitations General appearance: alert, in no apparent distress Head exam: Present: atraumatic, normocephalic, normal inspection Eye exam: Present: normal appearance, PERRL, EOMI. Absent: scleral icterus, conjunctival injection, periorbital swelling ENT exam: Present: normal exam, mucous membranes moist Neck exam: Present: normal inspection, full ROM. Absent: tenderness, meningismus, lymphadenopathy Respiratory exam: Present: normal lung sounds bilaterally. Absent: respiratory distress, wheezes, rales, rhonchi, stridor Cardiovascular Exam: Present: regular rate, normal rhythm, normal heart sounds. Absent: systolic murmur, diastolic murmur, rubs, gallop, clicks Course Vital Signs 12/26/20 16:40 Temperature 98.2 F Pulse Rate 92 Respiratory 18 Rate Blood Pressure 165/99 O2 Sat by Pulse 97 Oximetry Medical Decision Making - Medical Decision Making X-ray of the right elbow shows no acute fracture or dislocation. X-ray of the right wrist shows notice wrist fractures. Patient was wrapped with an Wilver wrap. Patient will follow-up with his doctor in one to 2 days. If he does have persistent pain he is aware he would benefit from repeat x-rays. He will return here for any worsening symptoms. Disposition Clinical Impression: Elbow pain, right, Wrist pain, right Disposition: HOME SELF-CARE Condition: Good Instructions (If sedation given, give patient instructions): Wrist Injury (ED), Elbow Sprain (ED) Additional Instructions: Please take Motrin and Tylenol for pain. Please rest ice and elevate the right wrist and elbow. Follow-up with your doctor in one to 2 days. If symptoms are not improving by 7 days you should get repeat x-rays. Is patient prescribed a controlled substance at d/c from ED?: No Referrals: Lane Flores MD [Primary Care Provider] - 1-2 days Time of Disposition: 17:46
== END 2020-12-26 18:16 | disposition home or self-care (01) ==
LOC: EC 16:15
DX: M25.521 Pain in right elbow (principal); M25.531 Pain in right wrist; J45.909 Unspecified asthma, uncomplicated; E78.5 Hyperlipidemia, unspecified; E11.40 Type 2 diabetes mellitus with diabetic neuropathy, unspecified; K21.9 Gastro-esophageal reflux disease without esophagitis; Z79.84 Long term (current) use of oral hypoglycemic drugs
CPT/HCPCS: 73080; 73110; 99283; 96372; J1885

== ENCOUNTER → 2021-01-05 | Outpatient (CLI) | payer OTHER ==
--- NOTE | 2021-01-05 11:53 | XR ---
EXAMINATION TYPE: XR wrist complete RT DATE OF EXAM: 01/05/2021 COMPARISON: 12/26/2020 HISTORY: Fall one week ago TECHNIQUE: 4 view right wrist FINDINGS: No acute fractures are evident. No subacute fractures are identified. If additional evaluat ion is required, consider MRI. Soft tissues is visualized and normal. IMPRESSION: 1. Normal-appearing 4 view right wrist. If additional evaluation is required, consider MRI.
== END | disposition home or self-care (01) ==
LOC: RADXRMAIN 11:12
PROVIDERS: ATTEND Emergency Medicine
DX: M25.531 Pain in right wrist (principal); W19.XXXA Unspecified fall, initial encounter

== ENCOUNTER → 2021-04-17 | Outpatient (CLI) | payer OTHER ==
--- NOTE | 2021-04-17 14:11 | XR ---
EXAMINATION TYPE: XR shoulder complete RT DATE OF EXAM: 04/17/2021 CLINICAL HISTORY: Lifting injury with pain TECHNIQUE: Three views of the right shoulder are obtained. COMPARISON: None. FINDINGS: There is no acute fracture/dislocation evident in the right shoulder. Moderate narrowing g lenohumeral and acromioclavicular joints. No significant spurring distal acromion morphology unremark able. The visualized ribs are intact . IMPRESSION: As above.
== END | disposition home or self-care (01) ==
LOC: RADXRMAIN 13:53
PROVIDERS: ATTEND Emergency Medicine
DX: M25.511 Pain in right shoulder (principal); S42.91XA Fracture of right shoulder girdle, part unspecified, initial encounter for closed fracture

== ENCOUNTER → 2021-04-27 | Outpatient (CLI) | payer OTHER ==
--- NOTE | 2021-04-28 01:04 | MR ---
EXAMINATION TYPE: MR shoulder RT wo con DATE OF EXAM: 04/27/2021 COMPARISON: None HISTORY: Right shoulder pain due to work related injury 2 weeks ago Multiplanar multiecho imaging of the right shoulder without contrast. There is some narrowing of the glenohumeral joint space. There is patchy increased signal in the marco ral head consistent with extensive edema and bone bruise. The glenoid mercedes appear intact. Subscapula ris tendon is intact. Biceps tendon is intact. There is small amount of fluid around the biceps tendo n. The supraspinatus tendon shows fairly normal signal pattern. There is no retraction. I do not see a f ull-thickness defect. IMPRESSION: Osteoarthritic narrowing of the glenohumeral joint space. Extensive edema in the subchondral humeral head consistent with bone bruise. Bone bruise also present in the posterior glenoid. No fracture line seen. No evidence of a full-thickness rotator cuff tear.
== END | disposition home or self-care (01) ==
LOC: RADMRIMAIN 20:40
PROVIDERS: ATTEND Emergency Medicine
DX: S40.011A Contusion of right shoulder, initial encounter (principal); M19.011 Primary osteoarthritis, right shoulder

== ENCOUNTER → 2021-05-14 | Outpatient (CLI) | payer OTHER ==
--- NOTE | 2021-05-14 11:02 | XR ---
EXAMINATION TYPE: XR humerus RT DATE OF EXAM: 05/14/2021 COMPARISON: None HISTORY: Slip and fall pain TECHNIQUE: 2 view right humerus FINDINGS: Humerus appears intact. No acute fracture or dislocation is evident. Joint spaces appear pr eserved. IMPRESSION: 1. Normal 2 view right humerus. 2. Follow up exams can be performed 7-10 days from acute trauma for continued pain.
--- NOTE | 2021-05-14 11:03 | XR ---
EXAMINATION TYPE: XR shoulder complete RT DATE OF EXAM: 05/14/2021 COMPARISON: NONE HISTORY: Pain, slip and fall TECHNIQUE: Shoulder examined in 3 projections FINDINGS: The humeral head articulates with the glenoid. The acromio-clavicular junction is normal. No acute fractures or dislocations are evident. A follow up study can be performed 7-10 days from acute trauma for continued pain. IMPRESSION: 1. Normal 3 view right Shoulder
== END | disposition home or self-care (01) ==
LOC: RADXRMAIN 10:40
PROVIDERS: ATTEND Emergency Medicine
DX: M25.511 Pain in right shoulder (principal); M79.621 Pain in right upper arm; W19.XXXA Unspecified fall, initial encounter

== ENCOUNTER 2022-11-18 16:50 | Emergency (ER) | payer OTHER ==
[2022-11-18 17:12] VITALS: BP 149/87; PULSE 99; RESP 18; TEMP 98.1
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
== END 2022-11-18 18:02 | disposition home or self-care (01) ==
LOC: EC 16:50
DX: Z02.83 Encounter for blood-alcohol and blood-drug test (principal); J45.909 Unspecified asthma, uncomplicated; E11.9 Type 2 diabetes mellitus without complications; E78.5 Hyperlipidemia, unspecified; Z79.84 Long term (current) use of oral hypoglycemic drugs; Z79.899 Other long term (current) drug therapy
CPT/HCPCS: 99283